=== PATIENT | female | born 1975 | race Caucasian/White ===

== ENCOUNTER 2019-06-16 05:56 | Inpatient (IN) ==
--- NOTE | 2019-06-08 20:47 | PAT Medication Instructions ---
Medication Instructions Date of Service June 08, 2019 Home Medications clonazepam [Klonopin] 1 mg PO HS ferrous sulfate [iron] 325 mg PO QAM venlafaxine [Effexor XR] 75 mg PO QAM venlafaxine [Effexor XR] 150 mg PO QAM acetaminophen [Tylenol Extra Strength] 1,000 mg PO Q6H PRN cyclobenzaprine 10 mg PO TID PRN ergocalciferol (vitamin D2) 50,000 unit PO WK gabapentin 300 mg PO TID levothyroxine [Synthroid] 50 mcg PO QAM levothyroxine [Synthroid] 112 mcg PO QAM lorazepam [Ativan] 1 mg PO HS rizatriptan [Maxalt-SEMI CONDUCTOR ASSEMBLER] 5 mg PO DAILY PRN zolpidem 12.5 mg PO HS Continue as directed ergocalciferol (vitamin D2) 50,000 unit PO WK DO NOT take the morning of surgery ferrous sulfate [iron] 325 mg PO QAM cyclobenzaprine 10 mg PO TID PRN Take morning of surgery With a small sip of water, OTHERWISE NOTHING TO EAT OR DRINK AFTER MIDNIGHT: venlafaxine [Effexor XR] 75 mg PO QAM venlafaxine [Effexor XR] 150 mg PO QAM acetaminophen [Tylenol Extra Strength] 1,000 mg PO Q6H PRN (if needed, may be taken up to four hours before surgery) gabapentin 300 mg PO TID levothyroxine [Synthroid] 50 mcg PO QAM levothyroxine [Synthroid] 112 mcg PO QAM rizatriptan [Maxalt-SEMI CONDUCTOR ASSEMBLER] 5 mg PO DAILY PRN (if needed) Take evening before surgery clonazepam [Klonopin] 1 mg PO HS acetaminophen [Tylenol Extra Strength] 1,000 mg PO Q6H PRN (if needed) cyclobenzaprine 10 mg PO TID PRN (if needed) gabapentin 300 mg PO TID lorazepam [Ativan] 1 mg PO HS rizatriptan [Maxalt-SEMI CONDUCTOR ASSEMBLER] 5 mg PO DAILY PRN (if needed) zolpidem 12.5 mg PO HS Other Notes If you have any questions please call us at [phone] or [phone] or [phone] or [phone]
--- NOTE | 2019-06-09 13:15 | Anesthesiology Consultation ---
Date of Service June 09, 2019 Assessment & Plan (1) Encounter for pre-operative examination: S/P lumbar decomp/fusion 08/07/18 = MAC 3, ETT 7.0, grade view I. No issues noted in record. *With previous fusion, pt had significant skin irritation post-op from tape on face used to secure ETT* CHECK TEST AM DOS Chart Review Chart Review: Acceptable Risk for Surgery and Patient seen in Pre Admission Testing Teaching & Discussion Instructed NPO after midnight before surgery, except medications with 15 cc of water. Medication instructions provided according to the PAT guidelines. History Surgery Operation Date: 06/16/19 07:45 Proposed Procedures p L3-L4 Decompression and Fusion;L4-L5, L5-S1 Removal Hardware with Spinal Cord Monitoring - Albert Amaya, Height/Weight Height: 5 ft 6 in Weight: 114.5 kg Allergies Allergy/AdvReac Type Severity Reaction Status Date / Time Iodinated Contrast- Oral and Allergy Mild itching Verified 08/07/18 08:02 IV Dye ampicillin Allergy Hives Verified 08/07/18 08:02 latex Allergy Redness of Verified 08/07/18 08:02 Skin Medications Home Medications Medication Instructions Recorded Confirmed Last Taken clonazepam [Klonopin] 1 mg PO HS 07/12/18 06/02/19 08/05/18 21:30 ferrous sulfate [iron] 325 mg PO QAM 07/12/18 06/02/19 08/06/18 10:30 venlafaxine [Effexor XR] 75 mg PO QAM 07/12/18 06/02/19 08/07/18 05:00 venlafaxine [Effexor XR] 150 mg PO QAM 07/12/18 06/02/19 08/07/18 05:00 acetaminophen [Tylenol Extra 1,000 mg PO Q6H PRN 08/07/18 06/02/19 08/07/18 05:00 Strength] cyclobenzaprine 10 mg PO TID PRN 06/02/19 06/02/19 Unknown ergocalciferol (vitamin D2) 50,000 unit PO WK 06/02/19 06/02/19 Unknown [Vitamin D2] gabapentin 300 mg PO TID 06/02/19 06/02/19 Unknown levothyroxine [Synthroid] 50 mcg PO QAM 06/02/19 06/02/19 Unknown levothyroxine [Synthroid] 112 mcg PO QAM 06/02/19 06/02/19 Unknown lorazepam [Ativan] 1 mg PO HS 06/02/19 06/02/19 Unknown rizatriptan [Maxalt-ORDER EDITOR] 5 mg PO DAILY PRN 06/02/19 06/02/19 Unknown zolpidem 12.5 mg PO HS 06/02/19 06/02/19 Unknown Past Medical History Medical History Anemia Anxiety Arthritis Chronic back pain B/L LE RADICULOPATHY/NEUROPATHY Depression History of intestinal obstruction POST GASTRIC BYPASS History of seizure 2014 - MULTIPLE TRAUMATIC ISSUES LED TO ONE EPISODE Hx of Lyme disease Hypothyroidism Insomnia Migraine Morbid obesity Spinal stenosis Exercise / Class Metabolic Activity II 4-5 Yardwork/Stairs/Walk up hill (Denies CP or SOB with 1 FOS) Past Surgical History Surgical History History of back surgery History of bowel resection 2/2 obstruction after gastric bypass History of carpal tunnel release of both wrists History of section History of cholecystectomy History of colonoscopy History of dilatation and curettage History of gastric bypass History of herniorrhaphy x5; VENTRAL/INGUINAL History of tonsillectomy and adenoidectomy History of tooth extraction Past Anesthesia History No Hx of Anesthesia Complications and No Family Hx of Anesthesia Complications S/P lumbar decomp/fusion 08/07/18 = MAC 3, ETT 7.0, grade view I. No issues noted in record. History of PONV History of PONV (single episode after lap brian) and Hx of Motion Sickness Social History Smoking Status: Current every day smoker tobacco type: cigarettes Smoking cigarettes per day: 15-20 Do You Dip or Chew Tobacco: No Hx Alcohol Use: No Hx Substance Use: No Review of Systems Pt denies any recent chest pain, shortness of breath, palpitations, cough, fever or URI. Physical Exam Vital Signs BP: 112/75 P: 72bpm SPO2: 96% RA T: 98.1 F R: 18 Constitutional + obese ENMT Mouth: + dental restorations (many crowns); no chipped teeth and no loose teeth Thyromental Distance: > or= 3.5 Finger Breadths (4) Mallampati Class: II Neck normal visual inspection; neck extension not limited Respiratory normal respiratory effort Auscultation: lungs clear to auscultation bilaterally Cardiovascular Rate/Rhythm: regular rate and regular rhythm Heart Sounds: no murmur Extremities: no edema Testing Laboratory Results 06/09/19 13:20 06/09/19 13:20 PT 10.3 Seconds (9.0-12.0) 06/09/19 13:20 INR 1.0 (0.9-1.1) 06/09/19 13:20 APTT 27.3 Seconds (21.0-31.0) 06/09/19 13:20 Urine Color Yellow 06/09/19 Unknown Urine Appearance Clear (Clear) 06/09/19 Unknown Urine pH 5.5 (4.5-7.5) 06/09/19 Unknown Ur Specific [place] 1.012 (1.000-1.030) 06/09/19 Unknown Urine Protein Negative (Negative) 06/09/19 Unknown Urine Glucose (UA) Trace (Negative) H 06/09/19 Unknown Urine Ketones Negative (Negative) 06/09/19 Unknown Urine Nitrite Positive (Negative) A 06/09/19 Unknown Ur Leukocyte Esterase Negative (Negative) 06/09/19 Unknown Urine RBC 0-4 /hpf (0-4) 06/09/19 Unknown Urine WBC 0-5 /hpf (0-5) 06/09/19 Unknown Ur Epithelial Cells 10-20 /lpf (0-5) H 06/09/19 Unknown Blood Type A Positive 06/09/19 13:20 Antibody Screen NEGATIVE 06/09/19 13:20 Electrocardiogram Date: 07/16/18 Findings: + NSR @ (65bpm) Left posterior fascicular block. Chest X-Ray Date: 07/16/18 Findings: + NAD
[2019-06-09 14:17] LABS: Basophils # (auto) 0.04 K/uL (0-0.2); Basophils % (auto) 0.4 %; Eosinophils # (auto) 0.01 K/uL (0-0.5); Eosinophils % (auto) 0.1 %; Hematocrit (blood only) 41.7 % (37-47); Hemoglobin 14.2 g/dL (12.0-16.0); Immature Granulocytes # (auto) 0.03 K/uL (0.00-0.02); Immature Granulocytes % (auto) 0.3 %; Lymphocytes # (auto) 2.75 K/uL (1.2-3.4); Mean Corpuscular Hgb Conc 34.1 g/dL (32-36); Mean Platelet Volume 10.1 fL (7.4-10.4); Monocytes # (auto) 0.73 K/uL (0.11-0.59); Neutrophils % (auto) 61.2 %; Platelet Count 280 K/uL (130-400); RDW Coefficient of Variation 13.9 % (11.5-14.5); RDW Standard Deviation 46.2 fL (36.4-46.3); Red Blood Count 4.58 M/uL (4.2-5.4); White Blood Count 9.16 K/uL (4.8-10.8)
[2019-06-09 14:18] LABS: Appearance Urine Clear (Clear); Bilirubin Urine Negative (Negative); Blood Urine Negative (Negative); Color Urine Yellow; Glucose Urine UA Trace (Negative); Ketones Urine Negative (Negative); Leukocyte Esterase Urine Negative (Negative); Nitrite Urine Positive (Negative); Protein Urine Negative (Negative); Specific Gravity Urine 1.012 (1.000-1.030); Urobilinogen Urine Negative (Negative); pH Urine 5.5 (4.5-7.5)
[2019-06-09 14:23] LABS: BUN Creatinine Ratio 11.8 (10-20); Calcium 8.9 mg/dl (8.5-10.1); Creatinine Clr Calc Pharmacy 106.1 ml/min; Est GFR (African American) 94.6; Est GFR (Non-African American) 81.6; Potassium 3.9 mmol/L (3.5-5.1)
[2019-06-09 14:29] LABS: Partial Thromboplastin Time 27.3 Seconds (21.0-31.0); Prothrombin Time 10.3 Seconds (9.0-12.0)
[2019-06-09 14:35] LABS: Bacteria Urine 3+ (Negative); RBC Urine 0-4 /hpf (0-4); WBC Urine 0-5 /hpf (0-5)
[2019-06-09 14:36] LABS: Hyaline Casts Urine 0-5 /lpf (0-5)
[2019-06-16] MEDS ORDERED: LR 15ML/HR IV SCH (06:00)
[2019-06-16] MEDS ORDERED: CEFAZOLIN 3000MG 72.5 ML IV SCH (06:00)
[2019-06-16] MEDS ORDERED: ACETAMINOPHEN 500 MG TAB PO SCH (06:00)
[2019-06-16] MEDS ORDERED: CeleBREX 200 MG CAP PO SCH (06:00)
[2019-06-16] MEDS ORDERED: CLINDAMYCIN 600 MG/54 ML BAG IV SCH (06:00)
[2019-06-16] MEDS ORDERED: GABAPENTIN 900 MG DOSE PO SCH (06:00)
[2019-06-16] MEDS ORDERED: ONDANSETRON INJ 2 MG/ML 2 ML VIAL IV PRN ×2 (06:56→11:27)
[2019-06-16] MEDS ORDERED: LABETALOL HCL IV 5 MG/ML 20ML IV PRN (06:56)
[2019-06-16] MEDS ORDERED: ATROPINE SULFATE 0.1 MG/ML 10ML SYR IV PRN (06:56)
[2019-06-16] MEDS ORDERED: BUPIVACAINE/EPINEPHRINE 0.5% MPF 1:200,000 30 ML VIAL ONE (07:00)
[2019-06-16] MEDS ORDERED: BACITRACIN INJ 50,000 UNIT VIAL ONE (07:00)
[2019-06-16] MEDS ORDERED: ONDANSETRON INJ 2 MG/ML 2 ML VIAL ONE ×2 (07:04→16:41)
[2019-06-16] MEDS ORDERED: LIDOCAINE HCL 2% 2 ML VIAL/AMP(20MG/ML) INFIL ONE (07:04)
[2019-06-16] MEDS ORDERED: DEXAMETHASONE SOD INJ 4 MG/ML VIAL ONE ×2 (07:04→07:10)
[2019-06-16] MEDS ORDERED: SODIUM CHLORIDE 0.9% INJ 10 ML VIAL ONE (07:05)
[2019-06-16] MEDS ORDERED: PROPOFOL IV EMULSION 10 MG/ML 20 ML VIAL IV ONE (07:05)
[2019-06-16] MEDS ORDERED: NEOSTIGMINE METHYLSULFATE 1 MG/ML 10ML VIAL ONE (07:05)
[2019-06-16] MEDS ORDERED: MIDAZOLAM HCL 1 MG/ML 2ML VIAL ONE (07:05)
[2019-06-16] MEDS ORDERED: LARYING-O-JET KIT (LTA) ONE (07:05)
[2019-06-16] MEDS ORDERED: GLYCOPYRROLATE 0.2 MG/ML VIAL ONE (07:05)
[2019-06-16] MEDS ORDERED: fentaNYL citrate 100 MCG/2 ML VIAL ONE (07:05)
[2019-06-16] MEDS ORDERED: HYDROmorphone INJ 2 MG/ML SYR/VIAL ONE (07:05)
--- NOTE | 2019-06-16 07:31 | History & Physical Bridge Note ---
Date of Service June 16, 2019 History & Physical Bridge Note I have examined the patient, reviewed the History & Physical and in the interval since the performance of the History & Physical I have noted the following changes of clinical significance: no changes noted
--- NOTE | 2019-06-16 07:32 | History & Physical Report ---
Date of Service June 16, 2019 Assessment & Plan (1) Spinal stenosis, lumbar region with neurogenic claudication: Decompression and fusion L3-4 removal hardware L4-5 L5-S1 Present on Admission?: Yes History of Present Illness Chief Complaint: Back and leg pain Primary Care Provider: Liu Patricia MD This is a 43-year-old female well-known to me that presents with worsening back and leg pain after failing extensive course of nonoperative care is here for surgical intervention. Allergies Allergy/AdvReac Type Severity Reaction Status Date / Time ampicillin Allergy Intermediate Hives Verified 06/16/19 06:33 Iodinated Contrast- Oral and Allergy Mild itching Verified 06/16/19 06:33 IV Dye latex Allergy Mild Redness of Verified 06/16/19 06:33 Skin Home Medications Home Medications Medication Instructions Recorded Confirmed Type clonazepam [Klonopin] 1 mg PO HS 07/12/18 06/16/19 History ferrous sulfate [iron] 325 mg PO QAM 07/12/18 06/16/19 History venlafaxine [Effexor XR] 75 mg PO QAM 07/12/18 06/16/19 History venlafaxine [Effexor XR] 150 mg PO QAM 07/12/18 06/16/19 History acetaminophen [Tylenol Extra 1,000 mg PO Q6H PRN 08/07/18 06/16/19 History Strength] cyclobenzaprine 10 mg PO TID PRN 06/02/19 06/16/19 History ergocalciferol (vitamin D2) 50,000 unit PO WK 06/02/19 06/16/19 History [Vitamin D2] gabapentin 300 mg PO TID 06/02/19 06/16/19 History levothyroxine [Synthroid] 50 mcg PO QAM 06/02/19 06/16/19 History levothyroxine [Synthroid] 112 mcg PO QAM 06/02/19 06/16/19 History lorazepam [Ativan] 1 mg PO HS 06/02/19 06/16/19 History rizatriptan [Maxalt-CASKET COVERER] 5 mg PO DAILY PRN 06/02/19 06/16/19 History zolpidem 12.5 mg PO HS 06/02/19 06/16/19 History Past Med/Surg History Social History Preferred Language: Faroese Communication Ability: Effective Sterile Processing Technologist Required: No Beliefs That Will Affect Care: None Current Living Situation: Family Feels Safe at Home: Yes Smoking Status: Current every day smoker Tobacco Type: cigarettes ; Cigarettes Per Day: 15-20 ; Do You Dip or Chew Tobacco: No ; Second Hand Exposure: No ; Hx Alcohol Use: No Hx Substance Use: No Physical Exam Physical Exam: Patient is alert and oriented neurologically intact. Results & Data Vital Signs (Past 12 Hours) Vital Signs Temp Pulse Resp BP Pulse Ox 06/16/19 06:38 36.9 C 68 20 94/72 L 97
[2019-06-16] MEDS ORDERED: CLINDAMYCIN 600 MG/54 ML D5W IV ONE (07:41)
[2019-06-16] MEDS ORDERED: ePHEDrine sulfate 50 MG/ML SYR ONE (08:33)
[2019-06-16] MEDS ORDERED: ROCURONIUM BROMIDE 10 MG/ML 5 ML VIAL ONE ×2 (08:33→09:22)
[2019-06-16] MEDS ORDERED: PHENYLEPHRINE 100MCG/ML 5ML SYR ONE (08:39)
[2019-06-16] MEDS ORDERED: ALBUMIN HUMAN 5% 12.5 GM/250 ML VIAL IV ONE (09:29)
--- NOTE | 2019-06-16 09:59 | Operative Report ---
Post Operative Report Pre & Post Diagnosis Operation Date: 06/16/19 07:45 Pre-Op Diagnosis: Spinal Stenosis, lumbar region with neurogenic claudication L3-4; Previous fusion L4-S1 Post-Op Diagnosis: Spinal Stenosis, lumbar region with neurogenic claudication L3-4; Previous fusion L4-S1 Procedure Operation Date: 06/16/19 07:45 Actual Procedures #1 removal of posterior instrumentation L4-5 L5-S1 per #2 expiration of fusion L4-5 L5-S1. #3 lumbar decompression with bilateral medial facetectomies L2-3 L3-4. #4 posterior spinal fusion L3-4. #5 placement posterior instrumentation L3-S1. #6 interbody fusion L3-4. #7 placement of titanium 11 x 22 mm cage at L3-4. #8 basement of local autograft in the posterior lateral gutters. #9 patient infuse collagen sponge, master graft in the posterior lateral gutters and ostial amp and interbody space. Surgeon Albert Amaya, DO Cathead Worker Mayte Marquez Estimated Blood Loss 650 Findings See Below Patient is 5 foot 6 inches tall weighing over 114 kg with a BMI in excess of 40. The patient's significant body habitus combined with marked blood loss created significant technical difficulty throughout the procedure requiring her deepest retractors and longest instruments to perform. This created at least 50% increase in operative time. Specimens None Indications This is a 43-year-old female well-known to me that presents with severe leg pain after failing extensive course of nonoperative care like to undergo the above- mentioned procedure. Description of Procedure Patient was met with identified and informed consent obtained. Patient was then taken to the operative suite underwent intubation placed in the prone position the Micky table on top of the Kevin frame. All bony prominences well-padded inspected to ensure no external pressure placed upon the peer at this point the lumbar spine was prepped and draped in a normal sterile fashion. Sharp dissection with the assistance of Bovie cautery was performed down to and exposing the lamina and transverse processes of L3 and instrumentation at L4-L5 and S1 levels bilaterally. I then proceed remove the hardware at L3-L4-L5 bilaterally. Noticed some loosening at the L3 screws. Bone graft appeared to be maturing appropriately. I then performed a complete laminectomy of L3 partial laminectomy of L2 including bilateral medial facetectomies foraminotomies addressing severe stenosis. Pedicle screws were then placed in L3-L4-L5 and S1 levels bilaterally with assistance of fluoroscopy the process naga placed. By way of a transforaminal approach on the right complete discectomy was performed endplates curetted to subcortical bleeding bone and a 11 x 22 mm titanium cage filled with ostium bone graft tapped in position. The rods were then compressed locked into final position bilaterally. The transverse processes of L3 and L4 burred to subcortical being bone. Infuse collagen sponge mass graft and local autograft placed in the posterior lateral gutters. 15 round CHANDNI drain inserted. Incision was then closed with 1 Vicryl in the fascia 2-0 Vicryl substantially and 4 Monocryl for final skin closure. Steri-Strips dressings placed. Patient will continue to PACU stable condition. Please note Mayte Marquez present throughout the entire procedure involved in patient positioning complex portions of the surgery and final skin closure. Lastly spinal cord monitoring was utilized that the procedure no changes noted. I attest to the content of the Intraoperative Record and any orders documented therein. Any exceptions are noted below.
[2019-06-16] MEDS: HYDROmorphone INJ 1 MG/ML SYRINGE IV PRN ×6 (10:20→10:45)
--- NOTE | 2019-06-16 10:23 | Fluoroscopy Report ---
FL lumbar spine 2-3V HISTORY: 43 years-old Female L3-L4 DECOMPRESSION AND FUSION/ L4-S1 HARDWARE REMOVAL postoperative ch anges of the lumbar spine. Chronic low back pain COMPARISON: Fluoroscopic images of the lumbar spine 08/07/2018 TECHNIQUE: 3 spot fluoroscopic images of the lumbar spine were obtained utilizing 8.9 seconds fluoros copy time FINDINGS: Laminectomy changes with posterior interbody naga and screw fusion extends from L3-S1. Discectomy riddle ges at L3-L4 and L5-S1. Alignment appears satisfactory without acute fracture identified. Multilevel spondylitic spurring. Intervertebral disc space narrowing at L3-L4. IMPRESSION: Fluoroscopic assistance as above. Please see operative report for further details. The above report was generated using voice recognition software. It may contain grammatical, syntax o r spelling errors. Electronically signed by: Cody Paec M.D. 06/16/2019 10:22 AM
[2019-06-16] MEDS: FLOSEAL HEMOSTATIC MATRIX 10ML TOP ONE ×2 (11:26→12:01)
[2019-06-16] MEDS ORDERED: CYCLOBENZAPRINE HCL 10 MG TAB PO PRN (11:27)
[2019-06-16] MEDS ORDERED: BISACODYL 10 MG SUPP PR PRN (11:27)
[2019-06-16] MEDS ORDERED: LORazepam 0.5 MG/1 ML VIAL IV PRN (11:27)
[2019-06-16] MEDS ORDERED: RIZATRIPTAN BENZOATE 10 MG TAB PO PRN (11:27)
[2019-06-16] MEDS ORDERED: DO NOT ADMINISTER FLU VACCINE PRN (11:27)
[2019-06-16] MEDS ORDERED: PROMETHAZINE HCL 12.5 MG in SODIUM CHLORIDE 0.9% 50 ML IV PRN (11:27)
[2019-06-16] MEDS ORDERED: MAGNESIUM HYDROXIDE SUSP 30 ML UDC PO PRN (11:27)
[2019-06-16] MEDS ORDERED: ONDANSETRON 4 MG TAB PO PRN (11:27)
[2019-06-16] MEDS ORDERED: DO NOT ADMINISTER PNEUMOCOCCAL VACCINE PRN (11:27)
[2019-06-16] MEDS ORDERED: ACETAMINOPHEN 1,000 MG/100 ML VIAL IV PRN (11:27)
[2019-06-16] MEDS ORDERED: METOCLOPRAMIDE HCL INJ 5 MG/ML 2 ML VIAL IV PRN (11:27)
[2019-06-16] MEDS ORDERED: LORazepam 0.5 MG TAB PO PRN (11:27)
[2019-06-16] MEDS ORDERED: FAMOTIDINE 20 MG TAB PO PRN (11:27)
[2019-06-16] MEDS ORDERED: HYDROmorphone INJ 0.5 MG/0.5 ML SYR IV PRN (11:27)
[2019-06-16] MEDS ORDERED: NALOXONE HCL 0.4 MG/1 ML VIAL/CARP IV PRN (11:27)
[2019-06-16] MEDS ORDERED: ALUMINUM/MAGNESIUM SUSP 30 ML UDC PO PRN (11:27)
[2019-06-16] MEDS ORDERED: SOD PHOSPHATE/SOD BIPHOSPHATE ENEMA 132 ML BTL PR PRN (11:27)
[2019-06-16] MEDS ORDERED: ACETAMINOPHEN 500 MG TAB PO PRN (11:27)
--- NOTE | 2019-06-16 12:07 | Anesthesiology Progress Note ---
Date of Service June 16, 2019 Anesthesia Post Procedure Vital Signs Vital Signs: Temp Pulse Pulse Resp BP Pulse Ox 06/16/19 11:10 37.2 C 87 12 102/69 98 06/16/19 11:00 36.6 C 84 15 115/64 97 06/16/19 10:50 85 19 109/64 98 06/16/19 10:40 88 20 127/64 99 06/16/19 10:30 86 15 109/68 100 06/16/19 10:20 93 H 12 142/77 H 100 06/16/19 10:14 37 C 108 H 12 102/81 100 06/16/19 06:38 36.9 C 68 20 94/72 L 97 Pain Intensity Lower Back: Pain Intensity: 9 Transfer of Care Handoff Completed per policy Notes Mental Status: alert / awake / arousable Patient Amnestic to Procedure: Yes Nausea / Vomiting: adequately controlled Pain: adequately controlled Airway Patency, RR, SpO2: stable & adequate BP & HR: stable & adequate Hydration State: stable & adequate Anesthetic Complications: no major complications apparent
[2019-06-16] MEDS: KETOROLAC 30 MG/ML VIAL IV SCH ×3 (12:29→23:10)
[2019-06-16] MEDS: LACTATED RINGER'S 1,000 ML IV SCH ×2 (12:30→19:59)
[2019-06-16] MEDS: GABAPENTIN 300 MG CAP PO SCH ×2 (13:33→20:16)
[2019-06-16] MEDS: OXYCODONE HCL IR 5 MG TAB (IMMEDIATE RELEASE) PO PRN ×2 (13:33→23:14)
[2019-06-16] MEDS: CLINDAMYCIN 600 MG in DEXTROSE 5% 50 ML IV SCH ×2 (16:42→23:10)
[2019-06-16] MEDS: NICOTINE 14 MG/24 HR PATCH TD SCH (20:02)
[2019-06-16] MEDS ORDERED: ZOLPIDEM TARTRATE 10 MG TAB PO SCH (21:00)
[2019-06-16] MEDS ORDERED: LORazepam 1 MG TAB PO SCH (21:00)
[2019-06-16] MEDS ORDERED: DOCUSATE SODIUM/SENNA 50/8.6MG TAB PO SCH (21:00)
[2019-06-16] MEDS ORDERED: clonazePAM 0.5 MG TAB PO SCH (21:00)
[2019-06-17] MEDS: LACTATED RINGER'S 1,000 ML IV SCH (02:15)
[2019-06-17] MEDS: OXYCODONE HCL IR 5 MG TAB (IMMEDIATE RELEASE) PO PRN ×3 (03:54→14:13)
[2019-06-17] MEDS: POLYETHYLENE (MIRALAX) 17 GM PACK PO SCH ×2 (05:26→12:44)
[2019-06-17] MEDS: KETOROLAC 30 MG/ML VIAL IV SCH (05:26)
[2019-06-17] MEDS ORDERED: LEVOTHYROXINE SODIUM 50 MCG TABLET PO SCH (06:30)
[2019-06-17] MEDS ORDERED: LEVOTHYROXINE SODIUM 112 MCG TABLET PO SCH (06:30)
[2019-06-17 06:54] LABS: Basophils # (auto) 0.03 K/uL (0-0.2); Basophils % (auto) 0.3 %; Eosinophils # (auto) 0.05 K/uL (0-0.5); Eosinophils % (auto) 0.5 %; Hematocrit (blood only) 30.7 % (37-47); Hemoglobin 10.2 g/dL (12.0-16.0); Immature Granulocytes # (auto) 0.03 K/uL (0.00-0.02); Immature Granulocytes % (auto) 0.3 %; Lymphocytes # (auto) 1.98 K/uL (1.2-3.4); Lymphocytes % (auto) 19.5 %; Mean Corpuscular Hgb Conc 33.2 g/dL (32-36); Mean Corpuscular Volume 91.6 fL (80-100); Mean Platelet Volume 9.7 fL (7.4-10.4); Monocytes # (auto) 0.71 K/uL (0.11-0.59); Neutrophils # (auto) 7.34 K/uL (1.4-6.5); Neutrophils % (auto) 72.4 %; Platelet Count 198 K/uL (130-400); RDW Coefficient of Variation 14.2 % (11.5-14.5); RDW Standard Deviation 47.7 fL (36.4-46.3); Red Blood Count 3.35 M/uL (4.2-5.4); White Blood Count 10.14 K/uL (4.8-10.8)
[2019-06-17 07:31] LABS: BUN Creatinine Ratio 17.3 (10-20); Calcium 8.2 mg/dl (8.5-10.1); Creatinine Clr Calc Pharmacy 99.2 ml/min; Est GFR (African American) 87.2; Est GFR (Non-African American) 75.2; Potassium 3.9 mmol/L (3.5-5.1)
--- NOTE | 2019-06-17 08:14 | Anesthesiology Progress Note ---
Date of Service June 17, 2019 Anesthesia Post Procedure Vital Signs Vital Signs: Temp Pulse Pulse Pulse Resp BP BP 06/17/19 07:12 37.0 C 72 18 113/76 06/17/19 05:35 101/64 06/17/19 03:08 36.8 C 73 16 97/61 L 06/16/19 23:53 100/62 100/64 06/16/19 22:59 36.8 C 71 16 89/55 L 06/16/19 19:29 36.8 C 78 17 144/79 H 06/16/19 15:00 36.8 C 80 17 101/64 06/16/19 14:08 72 18 101/64 06/16/19 13:26 84 18 106/65 06/16/19 12:10 92 H 16 101/67 06/16/19 11:40 88 18 112/75 06/16/19 11:10 37.2 C 87 12 102/69 06/16/19 11:00 36.6 C 84 15 115/64 06/16/19 10:50 85 19 109/64 06/16/19 10:40 88 20 127/64 06/16/19 10:30 86 15 109/68 06/16/19 10:20 93 H 12 142/77 H 06/16/19 10:14 37 C 108 H 12 102/81 Pulse Ox 06/17/19 07:12 95 06/17/19 05:35 06/17/19 03:08 95 06/16/19 23:53 06/16/19 22:59 96 06/16/19 19:29 96 06/16/19 15:00 94 06/16/19 14:08 94 06/16/19 13:26 94 06/16/19 12:10 96 06/16/19 11:40 98 06/16/19 11:10 98 06/16/19 11:00 97 06/16/19 10:50 98 06/16/19 10:40 99 06/16/19 10:30 100 06/16/19 10:20 100 06/16/19 10:14 100 Pain Intensity Lower Back: Pain Intensity: 6 Notes Mental Status: alert / awake / arousable and participated in evaluation Patient Amnestic to Procedure: Yes Nausea / Vomiting: adequately controlled Pain: adequately controlled Airway Patency, RR, SpO2: stable & adequate BP & HR: stable & adequate Hydration State: stable & adequate Anesthetic Complications: no major complications apparent and Pt Satisfied with anesthetic care
[2019-06-17] MEDS: GABAPENTIN 300 MG CAP PO SCH ×2 (08:47→12:44)
[2019-06-17] MEDS: NICOTINE 14 MG/24 HR PATCH TD SCH (08:47)
[2019-06-17] MEDS ORDERED: FERROUS SULFATE 325 MG TAB PO SCH (09:00)
[2019-06-17] MEDS ORDERED: VENLAFAXINE HCL XR 75 MG CAPXR PO SCH (09:00)
[2019-06-17] MEDS ORDERED: VENLAFAXINE HCL XR 150 MG CAPXR PO SCH (09:00)
--- NOTE | 2019-06-17 17:28 | Discharge Summary ---
Date of Service June 17, 2019 Admission HPI Per Admitting Provider This is a 43-year-old female well-known to me that presents with worsening back and leg pain after failing extensive course of nonoperative care is here for surgical intervention. Principal Diagnosis Lumbar spinal stenosis with neurogenic claudication. Discharge Data Allergies Allergy/AdvReac Type Severity Reaction Status Date / Time ampicillin Allergy Intermediate Hives Verified 06/16/19 06:33 Iodinated Contrast- Oral and Allergy Mild itching Verified 06/16/19 06:33 IV Dye latex Allergy Mild Redness of Verified 06/16/19 06:33 Skin Consultations 06/16/19 11:27 Consult Case Management - Discharge Planning Routine Procedures Performed Operation Date: 06/16/19 07:45 Actual Procedures p L3-L4 decompression and fusion L4-L5, with spinal cord monitoring, with bone morphogenetic protein and Osteoamp allograft, interbody cage L3-4(Not Applicable) - Albert Amaya DO s L5-S1 removal of hardware(Not Applicable) - Albert Amaya DO Ordered Studies 06/16/19 07:45 FL fluoroscopy <1hr Routine FL lumbar spine 2-3V Routine Hospital Course (1) Spinal stenosis, lumbar region with neurogenic claudication: Patient underwent lumbar depression fusion tolerated as well as taken orthopedic for postoperative postop day #1 marked improvement of her leg symptoms she is ambling well. Subsequently she would like to be discharged home. We arranged home health to monitor drain discharge instructions can be found the chart for further review. Total Time Total Time Spent Total Time Spent (In Minutes): 20 minutes Discharge Plan Discharge Items Patient Disposition: Home - Home Health Services Reason For Visit: LUMBAR INTERVERTEBRAL DISC DISORDERS W/RADICULOPAT Discharge Diagnosis: Lumbar spinal stenosis with radiculopathy Discharge Goals: Decrease discomfort Activity: Per 'Additional Instructions' section Non-emergency contact: Primary Care Provider Call non-emergency contact if: you have any medication questions Follow-up/Referrals: Liu Patricia MD [Primary Care Provider] - Diet: Regular Addtl Provider Instructions: ACTIVITY RECOMMENDATIONS: SELF CARE INSTRUCTIONS AFTER THORACIC/LUMBAR FUSIONS 1. You may walk to your tolerance. It is good exercise for your legs and back. Expect some back and intermittent leg aches and pains. 2. You may perform "counter-top" level activities (make a sandwich, mary with a project, etc.). 3. No bending or lifting of more than 10 pounds or back twisting of any nature (roll like a log when turning in bed). 4. You may ride in a car for 20-30 minutes at a time. No driving until after your first visit with your doctor. 5. Frequent changes of position and restricting sitting to 30 minutes at a time will help limit the amount of back spasms and stiffness you may experience. 6. You may discontinue the use of ambulatory aids (cane, crutches, etc.) once your strength and confidence allow. 7. You may vending machine mechanic the shower and let water strike your incision when you arrive home at least once daily. Do not take a tub bath, sit in a hot tub or go into a swimming pool until after your first recheck in the office. SPECIAL CARE INSTRUCTIONS: VERY IMPORTANT TO READ AND REVIEW A. Your surgical incision has been closed with a cosmetic suture under the skin that will dissolve in about 6 weeks. In 14 days, you can use a pair of clean scissors and cut the suture that is left outside of the skin at the ends of your incision. 1. The small skin tapes can be removed 7 days after surgery if they have not fallen off by that point. 2. You may keep the wound open to air as much as possible to promote healing after post-op day number 5 unless told otherwise by your doctor. 3. If you think the wound looks like it is becoming infected (redness or worsening drainage) and/or you are experiencing fever, chill or worsening back pain and muscle spasms, contact the office so that we may evaluate you as soon as possible. B. Complications are uncommon, but please contact us if you have any signs or symptoms of: 1. wound infection (fever higher than 102.5 degrees F, redness, separation of wound, drainage, or increasing pain from the incision) 2. blood clots in legs (pain, swelling, redness and warmth in legs) 3. urinary tract infection (fever higher than 102.5 degrees F, burning upon urination or increased frequency of urination) 4. nerve problems (inability to walk on your toes or heels, numbness, loss of bowel or bladder control) 5. any other symptoms that concern you C. Please call the office at if you have any concerns or questions about your operation or recovery. D. No smoking! Smoking drastically decreases the chance of a solid fusion. E. Do not take any anti-inflammatory medications (Indocin, Advil, Motrin, Aspirin, Naprosyn, etc.) as these may inhibit the chance of a solid fusion. Tylenol is okay to take for pain. MANAGING PAIN AFTER SPINAL SURGERY 1. Narcotic medication is intended for short-term use and will be provided for surgical pain. Surgical pain usually lasts for a period of 4-6 weeks. Narcotic medication includes Percocet, Vicodin, Darvocet, Tylenol #3 or Lortab. 2. Longer-term pain is more appropriately treated with non-narcotic medication such as Tylenol ES. 3. Muscle spasm is not appropriately treated with narcotics. Muscle relaxers such as Soma, Flexeril or Skelaxin can be used along with Tylenol ES. 4. Remember that we all live with some "aches and pains". This is not unusual or uncommon after an injury or as we get older. a. Back pain is expected and may include muscle spasms for 4 to 6 weeks after surgery. The pain should gradually improve. If the pain worsens for no apparent reason, please contact the office. b. Intermittent leg pain may also be experienced and should not be concerned about unless it worsens for no apparent reason. If so, please contact the office. 5. We will provide appropriate medication within the normal guidelines of their prescribed use. We will also be very cautious and aware of potential abuse and extended duration of patients' medication needs. a. Pain medications are for your comfort and to assist with sleep and rest so that the tissue can heal. They are not provided in order to return to normal activity and should not be used through the day. To do so or worsening pain at night can result from ongoing tissue damage and development of tolerance to the prescribed medicine. 6. Please allow 2-3 days to process refills. Prescriptions will not be mailed but must be picked up at the office. FOLLOW UP VISIT: Keep your scheduled follow-up appointment. Any questions, please call the office at . Prescriptions: New oxycodone 5 mg Tablet 5 mg PO Q4H PRN (Reason: Pain) Qty: 30 RF: 0 lorazepam 0.5 mg Tablet 0.5 mg PO Q8H Qty: 20 RF: 0 Continued cyclobenzaprine 10 mg Tablet 10 mg PO TID PRN (Reason: BACK SPASMS) RF: 0 levothyroxine [Synthroid] 50 mcg Tablet 50 mcg PO QAM RF: 0 gabapentin 300 mg Capsule 300 mg PO TID RF: 0 rizatriptan [Maxalt-MAT LINKER] 5 mg Tablet,Disintegrating 5 mg PO DAILY PRN (Reason: MIGRAINES) RF: 0 levothyroxine [Synthroid] 112 mcg Tablet 112 mcg PO QAM RF: 0 zolpidem 12.5 mg Tablet,Ext Release Multiphase 12.5 mg PO HS RF: 0 ergocalciferol (vitamin D2) [Vitamin D2] 50,000 unit Capsule 50,000 unit PO WK RF: 0 lorazepam [Ativan] 1 mg Tablet 1 mg PO HS RF: 0 venlafaxine [Effexor XR] 75 mg Capsule,Extended Release 24hr 75 mg PO QAM RF: 0 clonazepam [Klonopin] 0.5 mg Tablet 1 mg PO HS RF: 0 venlafaxine [Effexor XR] 150 mg Capsule,Extended Release 24hr 150 mg PO QAM RF: 0 ferrous sulfate [iron] 325 mg (65 mg iron) Tablet 325 mg PO QAM RF: 0 acetaminophen [Tylenol Extra Strength] 500 mg Tablet 1,000 mg PO Q6H PRN (Reason: Pain) RF: 0 Stand-Alone Forms: [employer], [facility]io[facility] Pain [facility] [employer]/Other Patient Handouts: Surgery Prevent DVT After, Tube Micky Hahn Drainage Care, ED Stockings Aaron Discharge Orders: Discharge Order (Routine); Ordered 06/17/19 Ordered By: Albert Amaya Admission Data Admit Date/Time: 06/16/19 10:02 Attending Provider: Albert Amaya Admit Provider: Albert Amaya Primary Care Provider: Liu Patricia Service: Surgical Services Other Interventions: Discharge Summary Assessment (RN) Last Done: 06/17/19 15:50 DC Date/Time DO NOT enter until pt leaves facility: 06/17/19 17:15
[2019-06-22] MEDS ORDERED: ERGOCALCIFEROL 50,000 UNITS CAP PO SCH (09:00)
== END 2019-06-17 17:15 | disposition home health service (06) | DRG 454 ==
LOC: ASU 05:56 → 3E 10:02
DX: Z68.41 Body mass index [BMI] 40.0-44.9, adult; Z98.1 Arthrodesis status; Z79.899 Other long term (current) drug therapy; E66.9 Obesity, unspecified; F17.210 Nicotine dependence, cigarettes, uncomplicated; M48.062 Spinal stenosis, lumbar region with neurogenic claudication

== ENCOUNTER 2019-07-31 10:57 | Inpatient (IN) ==
--- NOTE | 2019-07-25 12:30 | Anesthesiology Consultation ---
Date of Service July 25, 2019 Assessment & Plan (1) Encounter for pre-operative examination: Chart Review Chart Review: Acceptable Risk for Surgery and Patient NOT seen in Pre Admission Testing Consults Requested none History Surgery Operation Date: 07/31/19 12:50 Proposed Procedures p L3-L4 Revision Fusion, Spinal Cord Monitoring - Albert Amaya DO Allergies Allergy/AdvReac Type Severity Reaction Status Date / Time ampicillin Allergy Intermediate Hives Verified 06/16/19 06:33 Iodinated Contrast Media Allergy Mild itching Verified 06/16/19 06:33 [Iodinated Contrast- Oral and IV Dye] latex Allergy Mild Redness of Verified 06/16/19 06:33 Skin Medications Home Medications Medication Instructions Recorded Confirmed Last Taken clonazepam [Klonopin] 1 mg PO HS 07/12/18 06/16/19 06/14/19 22:00 ferrous sulfate [iron] 325 mg PO QAM 07/12/18 06/16/19 06/15/19 08:00 venlafaxine [Effexor XR] 75 mg PO QAM 07/12/18 06/16/19 06/16/19 04:00 venlafaxine [Effexor XR] 150 mg PO QAM 07/12/18 06/16/19 06/16/19 04:00 acetaminophen [Tylenol Extra 1,000 mg PO Q6H PRN 08/07/18 06/16/19 08/07/18 05:00 Strength] cyclobenzaprine 10 mg PO TID PRN 06/02/19 06/16/19 Unknown ergocalciferol (vitamin D2) 50,000 unit PO WK 06/02/19 06/16/19 06/15/19 08:00 [Vitamin D2] gabapentin 300 mg PO TID 06/02/19 06/16/19 06/15/19 18:00 levothyroxine [Synthroid] 50 mcg PO QAM 06/02/19 06/16/19 06/16/19 04:00 levothyroxine [Synthroid] 112 mcg PO QAM 06/02/19 06/16/19 06/16/19 04:00 lorazepam [Ativan] 1 mg PO HS 06/02/19 06/16/19 06/14/19 21:00 rizatriptan [Maxalt-CUPOLA LINER] 5 mg PO DAILY PRN 06/02/19 06/16/19 Unknown zolpidem 12.5 mg PO HS 06/02/19 06/16/19 06/14/19 21:00 oxycodone 5 mg PO Q4H PRN #30 tab 06/16/19 Unknown lorazepam 0.5 mg PO Q8H #20 tab 06/17/19 Unknown Past Medical History Medical History Anemia Anxiety Arthritis Chronic back pain B/L LE RADICULOPATHY/NEUROPATHY Depression History of intestinal obstruction POST GASTRIC BYPASS History of seizure 2014 - MULTIPLE TRAUMATIC ISSUES LED TO ONE EPISODE Hx of Lyme disease Hypothyroidism Insomnia Migraine Morbid obesity Spinal stenosis Past Family History Family History Brother Family history of diabetes mellitus Sister Family history of diabetes mellitus Father Family history of diabetes mellitus Mother Family history of diabetes mellitus Past Surgical History Surgical History History of back surgery History of bowel resection 2/2 obstruction after gastric bypass History of carpal tunnel release of both wrists History of section History of cholecystectomy History of colonoscopy History of dilatation and curettage History of gastric bypass History of herniorrhaphy x5; VENTRAL/INGUINAL History of tonsillectomy and adenoidectomy History of tooth extraction Social History Smoking Status: Current every day smoker tobacco type: cigarettes Smoking cigarettes per day: 15-20 Hx Alcohol Use: No Hx Substance Use: No substance use type: prescription drug Testing Laboratory Results Laboratory Tests 06/09/19 06/17/19 06/17/19 13:20 06:42 06:42 WBC 10.14 Hgb 10.2 L Hct 30.7 L Plt Count 198 PT 10.3 INR 1.0 APTT 27.3 Sodium 142 Potassium 3.9 Chloride 108 H Carbon Dioxide 30 BUN 16 Creatinine 0.92 Electrocardiogram Date: 07/16/19 Normal sinus rhythm Left posterior fascicular block Abnormal ECG No previous ECGs available Confirmed by Sp Crawford ([id number]) on 07/16/2018 1:47:21 PM Chest X-Ray Date: 07/16/19 Findings: + NAD
[~2019-07-31 10:57] MED LIST: ACETAMINOPHEN 500 MG TAB PO SCH; CEFAZOLIN - ALLERGY NOTED TO ORDERED MEDICATION SCH; CEFAZOLIN 2000MG 2,000 MG/15 ML SYR IV SCH; CeleBREX 200 MG CAP PO SCH; GABAPENTIN 900 MG DOSE PO SCH; LR 15ML/HR IV SCH
[2019-07-31] MEDS ORDERED: fentaNYL citrate 100 MCG/2 ML VIAL ONE ×4 (12:12→14:21)
[2019-07-31] MEDS ORDERED: MIDAZOLAM HCL 1 MG/ML 2ML VIAL ONE (12:12)
[2019-07-31] MEDS ORDERED: HYDROmorphone INJ 2 MG/ML SYR/VIAL ONE ×2 (12:12→14:10)
--- NOTE | 2019-07-31 12:18 | History & Physical Bridge Note ---
Date of Service July 31, 2019 History & Physical Bridge Note I have examined the patient, reviewed the History & Physical and in the interval since the performance of the History & Physical I have noted the following changes of clinical significance: no changes noted
--- NOTE | 2019-07-31 12:20 | History & Physical Report ---
Date of Service July 31, 2019 Assessment & Plan (1) Neurogenic claudication due to lumbar spinal stenosis: Revision fusion L3-L4 Present on Admission?: Yes History of Present Illness Primary Care Provider: Liu Patricia MD Allergies Allergy/AdvReac Type Severity Reaction Status Date / Time ampicillin Allergy Intermediate Hives Verified 07/31/19 11:43 Iodinated Contrast Media Allergy Mild itching Verified 07/31/19 11:43 [Iodinated Contrast- Oral and IV Dye] latex Allergy Mild Redness of Verified 07/31/19 11:43 Skin Home Medications Home Medications Medication Instructions Recorded Confirmed Type clonazepam [Klonopin] 1 mg PO HS 07/12/18 07/31/19 History ferrous sulfate [iron] 325 mg PO QAM 07/12/18 07/31/19 History venlafaxine [Effexor XR] 75 mg PO QAM 07/12/18 07/31/19 History venlafaxine [Effexor XR] 150 mg PO QAM 07/12/18 07/31/19 History acetaminophen [Tylenol Extra 1,000 mg PO Q6H PRN 08/07/18 07/31/19 History Strength] cyclobenzaprine 10 mg PO TID PRN 06/02/19 07/31/19 History ergocalciferol (vitamin D2) 50,000 unit PO WK 06/02/19 07/31/19 History [Vitamin D2] gabapentin 300 mg PO TID 06/02/19 07/31/19 History levothyroxine [Synthroid] 50 mcg PO QAM 06/02/19 07/31/19 History levothyroxine [Synthroid] 112 mcg PO QAM 06/02/19 07/31/19 History lorazepam [Ativan] 1 mg PO HS 06/02/19 07/31/19 History zolpidem 12.5 mg PO HS 06/02/19 07/31/19 History oxycodone 5 mg PO Q4H PRN #30 tab 06/16/19 07/31/19 Rx lorazepam 0.5 mg PO Q8H #20 tab 06/17/19 07/31/19 Rx rizatriptan [Maxalt] 10 mg PO UD PRN 07/28/19 07/31/19 History Past Med/Surg History Medical History Anemia Anxiety Arthritis Chronic back pain B/L LE RADICULOPATHY/NEUROPATHY Depression History of seizure 2015 - MULTIPLE TRAUMATIC ISSUES LED TO ONE EPISODE Hx of Lyme disease Hypothyroidism Insomnia Migraine Morbid obesity Spinal stenosis Surgical History History of back surgery LUMBAR FUSION History of bowel resection 2/2 obstruction after gastric bypass History of carpal tunnel release of both wrists History of section History of cholecystectomy History of colonoscopy History of dilatation and curettage History of gastric bypass History of herniorrhaphy x5; VENTRAL/INGUINAL History of tonsillectomy and adenoidectomy History of tooth extraction Family History Brother Family history of diabetes mellitus Sister Family history of diabetes mellitus Father Family history of diabetes mellitus Mother Family history of diabetes mellitus Social History Preferred Language: Syriac Communication Ability: Effective Ball Points Inspector Required: No Beliefs That Will Affect Care: None marital status: Current Living Situation: Spouse Other Information That Helps Us Care for You: No Feels Safe at Home: Yes Safety Concerns: Feels Safe At This Time Smoking Status: Never smoker Tobacco Type: cigarettes ; Cigarettes Per Day: 15- 20 ; Do You Dip or Chew Tobacco: No ; Second Hand Exposure: No ; Tobacco Cessation Education Requested by Patient: No Hx Alcohol Use: No Hx Substance Use: No Physical Exam Physical Exam: Patient is alert and oriented neurologically intact. Results & Data Vital Signs (Past 12 Hours) Vital Signs Temp Pulse Resp BP Pulse Ox 07/31/19 11:30 36.6 C 64 18 117/50 L 97
[2019-07-31] MEDS ORDERED: CLINDAMYCIN 600 MG/54 ML D5W IV ONE (12:37)
[2019-07-31] MEDS ORDERED: BUPIVACAINE/EPINEPHRINE 0.5% MPF 1:200,000 30 ML VIAL ONE (12:39)
[2019-07-31] MEDS ORDERED: BACITRACIN INJ 50,000 UNIT VIAL ONE (12:39)
[2019-07-31] MEDS ORDERED: ONDANSETRON INJ 2 MG/ML 2 ML VIAL IV PRN ×2 (12:42→16:36)
[2019-07-31] MEDS ORDERED: ATROPINE SULFATE 0.1 MG/ML 10ML SYR IV PRN (12:42)
[2019-07-31] MEDS ORDERED: METOCLOPRAMIDE HCL INJ 5 MG/ML 2 ML VIAL IV PRN ×2 (12:42→16:36)
[2019-07-31] MEDS ORDERED: PROMETHAZINE HCL 12.5 MG in SODIUM CHLORIDE 0.9% 50 ML IV PRN ×2 (12:42→16:36)
[2019-07-31] MEDS ORDERED: DEXAMETHASONE SOD INJ 4 MG/ML VIAL IV PRN (12:42)
[2019-07-31] MEDS ORDERED: fentaNYL citrate 100 MCG/2 ML VIAL IV PRN (12:42)
[2019-07-31] MEDS ORDERED: ePHEDrine sulfate 50 MG/ML AMP IV PRN (12:42)
[2019-07-31] MEDS ORDERED: VANCOMYCIN HCL 1000MG/20ML VIAL ONE (13:17)
[2019-07-31] MEDS ORDERED: GENTAMICIN SULFATE 40 MG/ML 2 ML VIAL ONE (13:17)
[2019-07-31] MEDS ORDERED: LARYING-O-JET KIT (LTA) ONE (13:26)
[2019-07-31] MEDS ORDERED: SODIUM CHLORIDE 0.9% INJ 10 ML VIAL ONE (13:49)
[2019-07-31] MEDS ORDERED: PHENYLEPHRINE 100MCG/ML 5ML SYR ONE (14:15)
[2019-07-31] MEDS ORDERED: PROPOFOL IV EMULSION 10 MG/ML 20 ML VIAL IV ONE (14:15)
[2019-07-31] MEDS ORDERED: NEOSTIGMINE METHYLSULFATE 1 MG/ML 10ML VIAL ONE (14:15)
[2019-07-31] MEDS ORDERED: METOCLOPRAMIDE HCL INJ 5 MG/ML 2 ML VIAL ONE (14:15)
[2019-07-31] MEDS ORDERED: KETOROLAC 30 MG/ML VIAL ONE (14:15)
[2019-07-31] MEDS ORDERED: ROCURONIUM BROMIDE 10 MG/ML 5 ML VIAL ONE (14:15)
[2019-07-31] MEDS ORDERED: ePHEDrine sulfate 50 MG/ML SYR ONE (14:15)
[2019-07-31] MEDS ORDERED: LIDOCAINE HCL 2% 2 ML VIAL/AMP(20MG/ML) INFIL ONE (14:15)
[2019-07-31] MEDS ORDERED: ONDANSETRON INJ 2 MG/ML 2 ML VIAL ONE (14:15)
[2019-07-31] MEDS ORDERED: DEXAMETHASONE SOD INJ 4 MG/ML VIAL ONE (14:15)
[2019-07-31] MEDS ORDERED: GLYCOPYRROLATE 0.2 MG/ML VIAL ONE (14:15)
--- NOTE | 2019-07-31 14:28 | Operative Report ---
Post Operative Report Pre & Post Diagnosis Operation Date: 07/31/19 12:50 Pre-Op Diagnosis: Migration of interbody cage. Postop Fracture of L3 pedicle bilaterally with migration of interbody cage. Procedure Operation Date: 07/31/19 12:50 Actual Procedures #1 removal of posterior instrumentation L3 pedicle screws and naga. #2 posterior instrumentation replaced at L3 with cross-link. #3 revision interbody fusion L3-4. #4 placement of stimulan beads. Surgeon Albert Amaya, DO Stock Raiser Mayte Marquez Estimated Blood Loss 275 Findings See Below The patient is 5 foot 6 inches tall weighing over 113 kg with a BMI in excess of 40. Patient's body habitus did add significant technical difficulty throughout the procedure increasing operative time and difficulty by at least 25%. Specimens None Indications This is a 43-year-old female well-known to me that presents with loosening of instrumentation and recurrence of her back and leg pain. Subsequently we elected to undergo the above-mentioned procedure. Description of Procedure Patient was met with identified and informed consent obtained. Patient was then taken to the operative suite underwent intubation placed in the prone position the Micky table on top of the Kevin frame. All bony prominences well-padded eyes inspected to ensure no external pressure placed upon the peer at this point the lumbar spine was prepped and draped in normal sterile fashion. Utilizing these previous incision site sharp dissection with the assistance of Bovie cautery was performed down to and exposing the instrumentation from L3-S1 1 bilaterally. I then removed the end caps and rods bilaterally. The bilateral L3 pedicle screws were obviously loose and I was able to remove them by simply pulling on them with a rondure. I subsequently on the left pedicle screw we oriented the screw in a different direction and was able to place a 6.5 x 50 mm screw on the left pedicle for much better purchase. On the right I elected to increase the screw to an 8.5 x 50 again noting excellent purchase and fixation. After this complete I reexposed the transforaminal space on the right identified the posterior margin of the interbody cage intruding into the canal. I was able to tamp the cage back into position revising interbody placement and fusion. The rods were then compressed locked into final position bilaterally. A cross- link was locked into position. I then placed approximately 5 cc of stimulant beads impregnated with vancomycin gentamicin throughout the incision site. 15 round CHANDNI drain was inserted. Incision was closed with 1 Vicryl in the fascia 2- 0 Vicryl subcutaneously and 4-0 Monocryl for final skin closure. Steri-Strip sterile dressings placed. Patient awakened taken to PACU stable condition. Please note Mayte Marquez present throughout the entire procedure involved the patient positioning complex portions of the surgery and final skin closure. Lastly spinal cord monitoring was utilized that the procedure no changes noted. I attest to the content of the Intraoperative Record and any orders documented therein. Any exceptions are noted below.
[2019-07-31] MEDS ORDERED: FLOSEAL HEMOSTATIC MATRIX 10ML TOP ONE (14:31)
[2019-07-31] MEDS ORDERED: ESMOLOL HCL INJ 10 MG/ML 10ML VIAL IV ONE (14:37)
--- NOTE | 2019-07-31 14:38 | Fluoroscopy Report ---
LUMBAR SPINE, INTRAOPERATIVE FLUOROSCOPY HISTORY: L3-L4 revision and fusion.. FLUOROSCOPY TIME: 34 seconds. FINDINGS: Intraoperative fluoroscopy was provided for the lumbar spine. 2 fluoroscopic spot images we re obtained. Posterior decompression and fusion from L3 through S1 with pedicle screws and rods. The hardware appears intact. IMPRESSION: Fluoroscopy provided for a L3-S1 posterior decompression and fusion. Electronically signed by: Bello Otero M.D. 07/31/2019 2:37 PM
[2019-07-31] MEDS: fentaNYL citrate 100 MCG/2 ML VIAL IV PRN ×4 (15:01→15:18)
[2019-07-31] MEDS: HYDROmorphone INJ 2 MG/ML SYR/VIAL IV PRN ×4 (15:23→15:41)
[2019-07-31] MEDS: LACTATED RINGER'S 1,000 ML IV SCH ×2 (16:20→23:44)
--- NOTE | 2019-07-31 16:23 | Anesthesiology Progress Note ---
Date of Service July 31, 2019 Anesthesia Post Procedure Vital Signs Vital Signs: Temp Pulse Pulse Resp BP BP Pulse Ox 07/31/19 15:50 36.5 C 77 23 115/65 97 07/31/19 15:40 75 21 120/69 100 07/31/19 15:30 89 15 154/68 H 100 07/31/19 15:20 91 H 21 149/87 H 100 07/31/19 15:10 89 17 141/127 H 100 07/31/19 15:00 81 19 149/103 H 100 07/31/19 14:51 85 15 119/88 100 07/31/19 14:43 37.3 C 84 14 138/91 100 07/31/19 11:30 36.6 C 64 18 117/50 L 97 Pain Intensity Lower Back: Pain Intensity: 5 Transfer of Care Handoff Completed per policy Notes Mental Status: alert / awake / arousable and participated in evaluation Patient Amnestic to Procedure: Yes Nausea / Vomiting: adequately controlled Pain: adequately controlled Airway Patency, RR, SpO2: stable & adequate BP & HR: stable & adequate Hydration State: stable & adequate Anesthetic Complications: no major complications apparent
[2019-07-31] MEDS ORDERED: TRAMADOL HCL 50 MG TABLET PO PRN (16:36)
[2019-07-31] MEDS ORDERED: LORazepam 0.5 MG/1 ML VIAL IV PRN (16:36)
[2019-07-31] MEDS ORDERED: SOD PHOSPHATE/SOD BIPHOSPHATE ENEMA 132 ML BTL PR PRN (16:36)
[2019-07-31] MEDS ORDERED: LORazepam 0.5 MG TAB PO SCH (16:36)
[2019-07-31] MEDS ORDERED: RIZATRIPTAN BENZOATE 10 MG TAB PO PRN (16:36)
[2019-07-31] MEDS ORDERED: HYDROmorphone INJ 0.5 MG/0.5 ML SYR IV PRN (16:36)
[2019-07-31] MEDS ORDERED: ONDANSETRON 4 MG TAB PO PRN (16:36)
[2019-07-31] MEDS ORDERED: ACETAMINOPHEN 500 MG TAB PO PRN ×2 (16:36)
[2019-07-31] MEDS ORDERED: bisacodyL 10 MG SUPP PR PRN (16:36)
[2019-07-31] MEDS ORDERED: DO NOT ADMINISTER FLU VACCINE PRN (16:36)
[2019-07-31] MEDS ORDERED: MAGNESIUM HYDROXIDE SUSP 30 ML UDC PO PRN (16:36)
[2019-07-31] MEDS ORDERED: NALOXONE HCL 0.4 MG/1 ML VIAL/CARP IV PRN (16:36)
[2019-07-31] MEDS ORDERED: ACETAMINOPHEN 1,000 MG/100 ML VIAL IV PRN (16:36)
[2019-07-31] MEDS ORDERED: ALUMINUM/MAGNESIUM SUSP 30 ML UDC PO PRN (16:36)
[2019-07-31] MEDS ORDERED: DO NOT ADMINISTER PNEUMOCOCCAL VACCINE PRN (16:36)
[2019-07-31] MEDS ORDERED: FAMOTIDINE 20 MG TAB PO PRN (16:36)
[2019-07-31] MEDS ORDERED: LORazepam 0.5 MG TAB PO PRN (16:36)
[2019-07-31] MEDS ORDERED: CYCLOBENZAPRINE HCL 10 MG TAB PO PRN (17:00)
[2019-07-31] MEDS: OXYCODONE HCL IR 5 MG TAB (IMMEDIATE RELEASE) PO PRN ×2 (17:04→23:08)
[2019-07-31] MEDS: KETOROLAC 30 MG/ML VIAL IV SCH ×2 (18:27→23:46)
[2019-07-31] MEDS: GABAPENTIN 300 MG CAP PO SCH (20:35)
[2019-07-31] MEDS: ZOLPIDEM TARTRATE 10 MG TAB PO SCH (20:35)
[2019-07-31] MEDS: DOCUSATE SODIUM/SENNA 50/8.6MG TAB PO SCH (20:35)
[2019-07-31] MEDS: CLINDAMYCIN 600 MG in DEXTROSE 5% 50 ML IV SCH (20:35)
[2019-07-31] MEDS: clonazePAM 0.5 MG TAB PO SCH (20:35)
[2019-07-31] MEDS ORDERED: ATIVAN 1MG HOMEPACK PO SCH (21:00)
[2019-08-01] MEDS: CLINDAMYCIN 600 MG in DEXTROSE 5% 50 ML IV SCH (03:37)
[2019-08-01] MEDS: OXYCODONE HCL IR 5 MG TAB (IMMEDIATE RELEASE) PO PRN ×5 (04:47→23:18)
[2019-08-01] MEDS: KETOROLAC 30 MG/ML VIAL IV SCH ×2 (05:46→12:30)
[2019-08-01] MEDS: POLYETHYLENE (MIRALAX) 17 GM PACK PO SCH ×4 (05:46→23:17)
[2019-08-01] MEDS: LEVOTHYROXINE SODIUM 112 MCG TABLET PO SCH (05:47)
[2019-08-01] MEDS: LEVOTHYROXINE SODIUM 50 MCG TABLET PO SCH (05:47)
[2019-08-01 05:57] LABS: Basophils # (auto) 0.04 K/uL (0-0.2); Basophils % (auto) 0.4 %; Eosinophils # (auto) 0.02 K/uL (0-0.5); Eosinophils % (auto) 0.2 %; Hematocrit (blood only) 32.1 % (37-47); Hemoglobin 10.2 g/dL (12.0-16.0); Immature Granulocytes # (auto) 0.02 K/uL (0.00-0.02); Immature Granulocytes % (auto) 0.2 %; Mean Corpuscular Hemoglobin 29.6 pg (25-34); Mean Corpuscular Hgb Conc 31.8 g/dL (32-36); Mean Platelet Volume 10.5 fL (7.4-10.4); Monocytes # (auto) 0.79 K/uL (0.11-0.59); Monocytes % (auto) 7.1 %; Neutrophils # (auto) 8.24 K/uL (1.4-6.5); Neutrophils % (auto) 74.1 %; Platelet Count 271 K/uL (130-400); RDW Standard Deviation 47.5 fL (36.4-46.3); Red Blood Count 3.45 M/uL (4.2-5.4); White Blood Count 11.11 K/uL (4.8-10.8)
[2019-08-01] MEDS ORDERED: CLINDAMYCIN 600 MG/54 ML BAG IV SCH (06:00)
[2019-08-01] MEDS: LACTATED RINGER'S 1,000 ML IV SCH (06:07)
[2019-08-01 06:32] LABS: BUN Creatinine Ratio 14.2 (10-20); Calcium 8.2 mg/dl (8.5-10.1); Creatinine Clr Calc Pharmacy 124.2 ml/min; Est GFR (African American) 115.3; Est GFR (Non-African American) 99.5; Potassium 3.9 mmol/L (3.5-5.1)
[2019-08-01] MEDS: GABAPENTIN 300 MG CAP PO SCH ×3 (08:28→20:16)
[2019-08-01] MEDS: FERROUS SULFATE 325 MG TAB PO SCH (08:28)
[2019-08-01] MEDS: VENLAFAXINE HCL XR 75 MG CAPXR PO SCH (08:29)
[2019-08-01] MEDS: VENLAFAXINE HCL XR 150 MG CAPXR PO SCH (08:29)
--- NOTE | 2019-08-01 09:44 | Anesthesiology Progress Note ---
Date of Service August 01, 2019 Anesthesia Post Procedure Vital Signs Vital Signs: Temp Pulse Pulse Resp BP BP Pulse Ox 08/01/19 07:23 36.7 C 58 L 16 91/57 L 96 08/01/19 04:56 36.5 C 67 16 105/70 96 07/31/19 22:50 36.9 C 81 16 125/70 96 07/31/19 19:12 37 C 84 16 100/61 94 07/31/19 18:07 36.9 C 78 16 102/66 93 07/31/19 17:12 36.8 C 83 17 96/63 L 94 07/31/19 16:48 36.7 C 78 16 102/63 92 07/31/19 16:15 37 C 76 22 102/65 98 07/31/19 15:50 36.5 C 77 23 115/65 97 07/31/19 15:40 75 21 120/69 100 07/31/19 15:30 89 15 154/68 H 100 07/31/19 15:20 91 H 21 149/87 H 100 07/31/19 15:10 89 17 141/127 H 100 07/31/19 15:00 36.3 C L 81 19 149/103 H 100 07/31/19 14:51 85 15 119/88 100 07/31/19 14:43 37.3 C 84 14 138/91 100 07/31/19 11:30 36.6 C 64 18 117/50 L 97 Pain Intensity Lower Back: Pain Intensity: 8 Notes Mental Status: alert / awake / arousable Patient Amnestic to Procedure: Yes Nausea / Vomiting: adequately controlled Pain: adequately controlled Airway Patency, RR, SpO2: stable & adequate BP & HR: stable & adequate Hydration State: stable & adequate Anesthetic Complications: no major complications apparent and Pt Satisfied with anesthetic care
--- NOTE | 2019-08-01 13:34 | Orthopedic Progress Note ---
Date of Service August 01, 2019 Assessment & Plan (1) Spinal stenosis, lumbar region with neurogenic claudication: At this time will initiate physical therapy monitor her CHANDNI output for discharge home this weekend. Present on Admission?: Yes Subjective Patient's back pain is much improved. Leg symptoms markedly improved. Physical Exam Physical Exam: Patient has good strength testing appears comfortable. Results & Data Vital Signs (Past 12 Hours) Vital Signs Temp Pulse Resp BP Pulse Ox 08/01/19 11:21 37.1 C 72 16 116/72 96 08/01/19 07:23 36.7 C 58 L 16 91/57 L 96 08/01/19 04:56 36.5 C 67 16 105/70 96
[2019-08-01] MEDS: ZOLPIDEM TARTRATE 10 MG TAB PO SCH (20:17)
[2019-08-01] MEDS: DOCUSATE SODIUM/SENNA 50/8.6MG TAB PO SCH (20:17)
[2019-08-01] MEDS: clonazePAM 0.5 MG TAB PO SCH (20:17)
[2019-08-02] MEDS: LEVOTHYROXINE SODIUM 112 MCG TABLET PO SCH (05:51)
[2019-08-02] MEDS: POLYETHYLENE (MIRALAX) 17 GM PACK PO SCH (05:51)
[2019-08-02] MEDS: LEVOTHYROXINE SODIUM 50 MCG TABLET PO SCH (05:51)
[2019-08-02] MEDS: OXYCODONE HCL IR 5 MG TAB (IMMEDIATE RELEASE) PO PRN ×2 (05:56→10:15)
[2019-08-02] MEDS: VENLAFAXINE HCL XR 150 MG CAPXR PO SCH (08:43)
[2019-08-02] MEDS: FERROUS SULFATE 325 MG TAB PO SCH (08:43)
[2019-08-02] MEDS: GABAPENTIN 300 MG CAP PO SCH (08:43)
[2019-08-02] MEDS: VENLAFAXINE HCL XR 75 MG CAPXR PO SCH (08:43)
--- NOTE | 2019-08-02 10:04 | Discharge Summary ---
Date of Service August 02, 2019 Principal Diagnosis Failed fusion L3-4. Discharge Data Allergies Allergy/AdvReac Type Severity Reaction Status Date / Time ampicillin Allergy Intermediate Hives Verified 07/31/19 11:43 Iodinated Contrast Media Allergy Mild itching Verified 07/31/19 11:43 [Iodinated Contrast- Oral and IV Dye] latex Allergy Mild Redness of Verified 07/31/19 11:43 Skin Consultations 07/31/19 16:36 Consult Case Management - Discharge Planning Routine Procedures Performed Operation Date: 07/31/19 12:50 Actual Procedures p L3-L4 Revision Fusion, Spinal Cord Monitoring(Not Applicable) - Albert Amaya DO Ordered Studies 07/31/19 12:50 FL fluoroscopy <1hr Routine FL lumbar spine 2-3V Routine Hospital Course (1) Neurogenic claudication due to lumbar spinal stenosis: Patient underwent revision fusion L3-4. She tolerated as well as taken to the orthopedic for postoperative. Postop day and when she was up and ambulating progressed to postop day 2. Strength is intact. CHANDNI drain decreasing appropriately. Pain well controlled. Subsequently discharged home. Discharge orders and instructions found in the chart for further review. Total Time Total Time Spent Total Time Spent (In Minutes): 20 minutes Discharge Plan Discharge Items Patient Disposition: Home - Self-Care Reason For Visit: Breakdown (Mechanical) of Internal Fixation Device Discharge Diagnosis: Migration of hardware L3-4. Activity: Per Instructions section Non-emergency contact: Primary Care Provider Call non-emergency contact if: you have any medication questions Follow-up/Referrals: Liu Patricia MD [Primary Care Provider] - Diet: Regular Addtl Attending Provider Instructions: ACTIVITY RECOMMENDATIONS: SELF CARE INSTRUCTIONS AFTER THORACIC/LUMBAR FUSIONS 1. You may walk to your tolerance. It is good exercise for your legs and back. Expect some back and intermittent leg aches and pains. 2. You may perform "counter-top" level activities (make a sandwich, mary with a project, etc.). 3. No bending or lifting of more than 10 pounds or back twisting of any nature (roll like a log when turning in bed). 4. You may ride in a car for 20-30 minutes at a time. No driving until after your first visit with your doctor. 5. Frequent changes of position and restricting sitting to 30 minutes at a time will help limit the amount of back spasms and stiffness you may experience. 6. You may discontinue the use of ambulatory aids (cane, crutches, etc.) once your strength and confidence allow. 7. You may fire control system installer the shower and let water strike your incision when you arrive home at least once daily. Do not take a tub bath, sit in a hot tub or go into a swimming pool until after your first recheck in the office. SPECIAL CARE INSTRUCTIONS: VERY IMPORTANT TO READ AND REVIEW A. Your surgical incision has been closed with a cosmetic suture under the skin that will dissolve in about 6 weeks. In 14 days, you can use a pair of clean scissors and cut the suture that is left outside of the skin at the ends of your incision. 1. The small skin tapes can be removed 7 days after surgery if they have not fallen off by that point. 2. You may keep the wound open to air as much as possible to promote healing after post-op day number 5 unless told otherwise by your doctor. 3. If you think the wound looks like it is becoming infected (redness or worsening drainage) and/or you are experiencing fever, chill or worsening back pain and muscle spasms, contact the office so that we may evaluate you as soon as possible. B. Complications are uncommon, but please contact us if you have any signs or symptoms of: 1. wound infection (fever higher than 102.5 degrees F, redness, separation of wound, drainage, or increasing pain from the incision) 2. blood clots in legs (pain, swelling, redness and warmth in legs) 3. urinary tract infection (fever higher than 102.5 degrees F, burning upon urination or increased frequency of urination) 4. nerve problems (inability to walk on your toes or heels, numbness, loss of bowel or bladder control) 5. any other symptoms that concern you C. Please call the office at if you have any concerns or questions about your operation or recovery. D. No smoking! Smoking drastically decreases the chance of a solid fusion. E. Do not take any anti-inflammatory medications (Indocin, Advil, Motrin, Asp irin, Naprosyn, etc.) as these may inhibit the chance of a solid fusion. Tylenol is okay to take for pain. MANAGING PAIN AFTER SPINAL SURGERY 1. Narcotic medication is intended for short-term use and will be provided for surgical pain. Surgical pain usually lasts for a period of 4-6 weeks. Narcotic medication includes Percocet, Vicodin, Darvocet, Tylenol #3 or Lortab. 2. Longer-term pain is more appropriately treated with non-narcotic medication such as Tylenol ES. 3. Muscle spasm is not appropriately treated with narcotics. Muscle relaxers such as Soma, Flexeril or Skelaxin can be used along with Tylenol ES. 4. Remember that we all live with some "aches and pains". This is not unusual or uncommon after an injury or as we get older. a. Back pain is expected and may include muscle spasms for 4 to 6 weeks after surgery. The pain should gradually improve. If the pain worsens for no apparent reason, please contact the office. b. Intermittent leg pain may also be experienced and should not be concerned about unless it worsens for no apparent reason. If so, please contact the office. 5. We will provide appropriate medication within the normal guidelines of their prescribed use. We will also be very cautious and aware of potential abuse and extended duration of patients' medication needs. a. Pain medications are for your comfort and to assist with sleep and rest so that the tissue can heal. They are not provided in order to return to normal activity and should not be used through the day. To do so or worsening pain at night can result from ongoing tissue damage and development of tolerance to the prescribed medicine. 6. Please allow 2-3 days to process refills. Prescriptions will not be mailed but must be picked up at the office. FOLLOW UP VISIT: Keep your scheduled follow-up appointment. Any questions, please call the office at . Pending Studies at Discharge: No Stand-Alone Forms: [facility] Medications and DC Order Prescriptions: New oxycodone 5 mg Tablet 5 mg PO Q4H PRN (Reason: Pain, Severe) Qty: 30 RF: 0 Continued cyclobenzaprine 10 mg Tablet 10 mg PO TID PRN (Reason: BACK SPASMS) RF: 0 levothyroxine [Synthroid] 50 mcg Tablet 50 mcg PO QAM RF: 0 gabapentin 300 mg Capsule 300 mg PO TID RF: 0 levothyroxine [Synthroid] 112 mcg Tablet 112 mcg PO QAM RF: 0 zolpidem 12.5 mg Tablet,Ext Release Multiphase 12.5 mg PO HS RF: 0 ergocalciferol (vitamin D2) [Vitamin D2] 50,000 unit Capsule 50,000 unit PO WK RF: 0 lorazepam [Ativan] 1 mg Tablet 1 mg PO HS RF: 0 oxycodone 5 mg Tablet 5 mg PO Q4H PRN (Reason: Pain) Qty: 30 RF: 0 lorazepam 0.5 mg Tablet 0.5 mg PO Q8H Qty: 20 RF: 0 venlafaxine [Effexor XR] 75 mg Capsule,Extended Release 24hr 75 mg PO QAM RF: 0 clonazepam [Klonopin] 0.5 mg Tablet 1 mg PO HS RF: 0 venlafaxine [Effexor XR] 150 mg Capsule,Extended Release 24hr 150 mg PO QAM RF: 0 ferrous sulfate [iron] 325 mg (65 mg iron) Tablet 325 mg PO QAM RF: 0 acetaminophen [Tylenol Extra Strength] 500 mg Tablet 1,000 mg PO Q6H PRN (Reason: Pain) RF: 0 rizatriptan [Maxalt] 10 mg Tablet 10 mg PO UD PRN (Reason: MIGRAINES) RF: 0 Discharge Orders: Discharge Order (Routine); Ordered 08/02/19 Ordered By: Albert Amaya Admission Data Admit Date/Time: 07/31/19 14:32 Attending Provider: Albert Amaya Admit Provider: Albert Amaya Primary Care Provider: Liu Patricia
== END 2019-08-02 11:30 | disposition home or self-care (01) | DRG 516 ==
LOC: ASU 10:57 → 3E 14:32

== ENCOUNTER 2021-06-06 05:57 | Observation (INO) ==
--- NOTE | 2021-05-20 12:46 | PAT Medication Instructions ---
Medication Instructions Date of Service May 20, 2021 Home Medications ferrous sulfate 325 mg (65 mg iron) tablet (iron) 325 mg PO QAM acetaminophen 500 mg tablet (Tylenol Extra Strength) 1,000 mg PO Q6H PRN cyclobenzaprine 10 mg tablet 10 mg PO TID PRN ergocalciferol (vitamin D2) 1,250 mcg (50,000 unit) capsule (Vitamin D2) 50,000 unit PO WK zolpidem 12.5 mg tablet,extended release,multiphase 10 mg PO HS rizatriptan 10 mg tablet (Maxalt) 10 mg PO UD PRN alprazolam 0.5 mg tablet (Xanax) 0.5 mg PO TID atorvastatin 20 mg tablet 20 mg PO QAM celecoxib 200 mg capsule (Celebrex) 200 mg PO BID citalopram 20 mg tablet 20 mg PO QAM docusate sodium 100 mg tablet (Stool Softener) 100 mg PO QAM levothyroxine 175 mcg tablet 175 mcg PO QAM pregabalin 75 mg capsule (Lyrica) 75 mg PO TID ASK your surgeon for instructions celecoxib 200 mg capsule (Celebrex) 200 mg PO BID DO NOT take the morning of surgery ferrous sulfate 325 mg (65 mg iron) tablet (iron) 325 mg PO QAM cyclobenzaprine 10 mg tablet 10 mg PO TID PRN ergocalciferol (vitamin D2) 1,250 mcg (50,000 unit) capsule (Vitamin D2) 50,000 unit PO WK docusate sodium 100 mg tablet (Stool Softener) 100 mg PO QAM Take morning of surgery With a small sip of water, OTHERWISE NOTHING TO EAT OR DRINK AFTER MIDNIGHT: acetaminophen 500 mg tablet (Tylenol Extra Strength) 1,000 mg PO Q6H PRN (okay to take up to 4 hours prior to surgery if needed) rizatriptan 10 mg tablet (Maxalt) 10 mg PO UD PRN (if needed) alprazolam 0.5 mg tablet (Xanax) 0.5 mg PO TID atorvastatin 20 mg tablet 20 mg PO QAM citalopram 20 mg tablet 20 mg PO QAM levothyroxine 175 mcg tablet 175 mcg PO QAM pregabalin 75 mg capsule (Lyrica) 75 mg PO TID Take evening before surgery acetaminophen 500 mg tablet (Tylenol Extra Strength) 1,000 mg PO Q6H PRN (if needed) cyclobenzaprine 10 mg tablet 10 mg PO TID PRN (if needed) zolpidem 12.5 mg tablet,extended release,multiphase 10 mg PO HS rizatriptan 10 mg tablet (Maxalt) 10 mg PO UD PRN (if needed) alprazolam 0.5 mg tablet (Xanax) 0.5 mg PO TID pregabalin 75 mg capsule (Lyrica) 75 mg PO TID Other Notes If you have any questions please call us at [phone] or [phone] or [phone] or [phone]
--- NOTE | 2021-05-23 15:13 | Anesthesiology Consultation ---
Date of Service May 23, 2021 Assessment & Plan (1) Encounter for pre-operative examination: - COVID screening: Per assessment on 05/23: Travel screen negative, no known COVID-19 positive contacts or current COVID-19 related symptoms. Patient vaccinated. Surgeon arranging preop COVID testing. Awaiting results. - S/P L3 screws + interbody cage revision (07/31/19): Grade view 1, MAC#3 at [facility] Chart Review Chart Review: Acceptable Risk for Surgery and Patient seen in Pre Admission Testing Teaching & Discussion Pre-Anesthesia Teaching/Discussion Notes: Instructed NPO after midnight before surgery,except medications with 15 cc of water. Medication instructions provided according to the PAT guidelines. History Surgery Operation Date: 06/06/21 09:35 Proposed Procedures p C4-C7 Anterior Cervical Discectomy and Fusion, Possible C3-C4, Possible Corpectomy, Spinal Cord Monitoring - Albert Amaya, Height/Weight Height: 5 ft 6.5 in Weight: 121.2 kg Allergies Allergy/AdvReac Type Severity Reaction Status Date / Time ampicillin Allergy Intermediate Hives Verified 05/18/21 13:39 Iodinated Contrast Media Allergy Mild Itching Verified 05/23/21 15:13 [Iodinated Contrast- Oral and IV Dye] latex Allergy Mild Skin Verified 05/23/21 15:13 redness Medications Home Medications Medication Instructions Recorded Confirmed Last Taken ferrous sulfate 325 mg (65 mg 325 mg PO QAM 07/12/18 05/18/21 07/30/19 10:30 iron) tablet (iron) acetaminophen 500 mg tablet 1,000 mg PO Q6H PRN 08/07/18 05/18/21 07/28/19 (Tylenol Extra Strength) cyclobenzaprine 10 mg tablet 10 mg PO TID PRN 06/02/19 05/18/21 07/30/19 21:00 ergocalciferol (vitamin D2) 1,250 50,000 unit PO WK 06/02/19 05/18/21 07/27/19 mcg (50,000 unit) capsule (Vitamin D2) zolpidem 12.5 mg tablet,extended 10 mg PO HS 06/02/19 05/18/21 07/30/19 21:00 release,multiphase rizatriptan 10 mg tablet (Maxalt) 10 mg PO UD PRN 07/28/19 05/18/21 Unknown alprazolam 0.5 mg tablet (Xanax) 0.5 mg PO TID 05/18/21 05/18/21 Unknown atorvastatin 20 mg tablet 20 mg PO QAM 05/18/21 05/18/21 Unknown celecoxib 200 mg capsule (Celebrex) 200 mg PO BID 05/18/21 05/18/21 Unknown citalopram 20 mg tablet 20 mg PO QAM 05/18/21 05/18/21 Unknown docusate sodium 100 mg tablet 100 mg PO QAM 05/18/21 05/18/21 Unknown (Stool Softener) levothyroxine 175 mcg tablet 175 mcg PO QAM 05/18/21 05/18/21 Unknown pregabalin 75 mg capsule (Lyrica) 75 mg PO TID 05/18/21 05/18/21 Unknown Past Medical History Medical History Anemia Anxiety Arthritis Chronic back pain B/L LE radiculopathy/neuropathy Depression History of seizure Single episode (2014) r/t "traumatic issues"/no issues since Follows with Dr. Inés Amaro ([place]) and Dr. Carmona ([place]) Hx of Lyme disease 2015 s/p treatment Hyperlipidemia Hypothyroidism Insomnia Migraine Morbid obesity Osteoarthritis Spinal stenosis Temporomandibular joint disorder R/L, no locking x years Exercise / Class Metabolic Activity II 4-5 Yardwork/Stairs/Walk up hill (one FS (no CP, no SOB)) Past Family History Family History Brother Family history of diabetes mellitus Sister Family history of diabetes mellitus Father Family history of diabetes mellitus Mother Family history of diabetes mellitus Past Surgical History Surgical History History of arthroscopy Right History of back surgery Including lumbar fusion (total x3 surgeries) L3 screws + interbody cage revision (07/31/19): Grade view 1, MAC#3 at [facility] History of bowel resection 2/2 obstruction after gastric bypass History of carpal tunnel release of both wrists History of section History of cholecystectomy History of colonoscopy History of dilatation and curettage History of esophagogastroduodenoscopy (EGD) History of gastric bypass History of herniorrhaphy x5 (ventral/inguinal) History of hysterectomy + USO History of tonsillectomy and adenoidectomy History of tooth extraction Past Anesthesia History No Hx of Anesthesia Complications and No Family Hx of Anesthesia Complications History of PONV No Hx of PONV and Hx of Motion Sickness (+ cars) STOP BANG Total 2 Social History Smoking Status: Former smoker tobacco type: cigarettes Do You Dip or Chew Tobacco: No Smoking End Date: Quit 11/19/2018 (hx 15-20 cigs/day) Hx Alcohol Use: No Hx Substance Use: Yes substance use type: marijuana (Medical marijuana (+ card) > Oral gummies, drops, oil) Review of Systems Patient denies chest pain, shortness of breath, dyspnea on exertion, fever, chills, cough, wheezing, palpitations. Physical Exam Vital Signs VITALS BP 106/67 P 62 TEMP 98.1 SP02 95%RA RESP 16 PHYSICAL Decreased cervical extension range of motion. Full TMJ range of motion. TMD 3.5 finger breaths Mallampati Score 3 Dentition: upper right molar (tooth repair ? filing fell out- dentist trying to get in before surgery, pt will make surgeon's office aware if scheduling before surgery) Lungs: clear throughout to auscultation Cardiac: regular rate and rhythm, no murmurs noted Spine: normal Carotid arteries: negative bruit Extremities: no edema Lab Results Anesthesia Preop Results Results Anesthesia Widget: WBC 9.85 K/uL (4.8-10.8) 05/23/21 Hgb 14.3 g/dL (12.0-16.0) 05/23/21 Hct 43.0 % (37-47) 05/23/21 Plt 242 K/uL (130-400) 05/23/21 Na 140 mmol/L (136-145) 05/23/21 K 3.8 mmol/L (3.5-5.1) 05/23/21 Cl 109 mmol/L (98-107) H 05/23/21 CO2 26 mmol/L (21-32) 05/23/21 BUN 17 mg/dl (7-18) 05/23/21 Creat 0.80 mg/dl (0.6-1.2) 05/23/21 Glucose Level 98 mg/dl (70-99) 05/23/21 PT 10.0 Seconds (9.0-12.0) 05/23/21 PTT 27.9 Seconds (21.0-31.0) 05/23/21 INR 1.0 (0.9-1.1) 05/23/21 Urine Color Yellow 05/23/21 Urine Appearance Clear (Clear) 05/23/21 Urine pH 5.5 (4.5-7.5) 05/23/21 Urine Specific [place] 1.011 (1.000-1.030) 05/23/21 Urine Protein Negative (Negative) 05/23/21 Urine Glucose (UA) Negative (Negative) 05/23/21 Urine Ketones Negative (Negative) 05/23/21 Urine Blood Negative (Negative) 05/23/21 Urine Nitrite Negative (Negative) 05/23/21 Urine Bilirubin Negative (Negative) 05/23/21 Urine Urobilinogen Negative (Negative) 05/23/21 Urine Leukocyte Esterase Negative (Negative) 05/23/21 Blood Type A Positive 05/23/21 Antibody Screen NEGATIVE 05/23/21 Testing Electrocardiogram Date: 05/23/21 NSR at 61bpm. Right axis deviation. unconfirmed report. Chest X-Ray Date: 05/23/21 FINDINGS: Cardiomediastinal and hilar silhouettes are within normal limits. No pneumothorax, pleural effusion, airspace consolidation or overt pulmonary edema. Degenerative changes of the shoulders and spine with suggested left shoulder rotator cuff calcific tendinosis. Upper abdominal herniorrhaphy coils. IMPRESSION: No acute process.
[2021-06-06] MEDS ORDERED: LR 15ML/HR IV SCH (06:00)
[2021-06-06] MEDS ORDERED: CeleBREX 200 MG CAP PO SCH (06:00)
[2021-06-06] MEDS ORDERED: CLINDAMYCIN 600 MG/54 ML BAG IV SCH (06:00)
[2021-06-06] MEDS ORDERED: GABAPENTIN 900 MG DOSE PO SCH (06:00)
[2021-06-06] MEDS ORDERED: ACETAMINOPHEN 500 MG TAB PO SCH (06:00)
[2021-06-06] MEDS ORDERED: ALBUMIN HUMAN 5% 12.5 GM/250 ML VIAL IV ONE (07:13)
[2021-06-06] MEDS ORDERED: SUGAMMADEX SODIUM 200 MG/2 ML VIAL IV ONE (07:14)
[2021-06-06] MEDS ORDERED: fentaNYL citrate 100 MCG/2 ML VIAL IV PRN (07:16)
[2021-06-06] MEDS ORDERED: PROMETHAZINE HCL 12.5 MG in SODIUM CHLORIDE 0.9% 50 ML IV PRN ×2 (07:16→12:41)
[2021-06-06] MEDS ORDERED: ONDANSETRON INJ 2 MG/ML 2 ML VIAL IV PRN ×2 (07:16→12:41)
[2021-06-06] MEDS ORDERED: ePHEDrine sulfate 50 MG/ML AMP IV PRN (07:16)
[2021-06-06] MEDS ORDERED: ATROPINE SULFATE 0.1 MG/ML 10ML SYR IV PRN (07:16)
[2021-06-06] MEDS ORDERED: SUCCINYLCHOLINE CHLORIDE 20 MG/ML 10 ML VIAL IV ONE (07:19)
[2021-06-06] MEDS ORDERED: PROPOFOL IV EMULSION 10 MG/ML 20 ML VIAL IV ONE (07:19)
[2021-06-06] MEDS ORDERED: HYDROmorphone INJ 2 MG/ML SYR/VIAL ONE ×2 (07:19→09:19)
[2021-06-06] MEDS ORDERED: DEXAMETHASONE SOD INJ 4 MG/ML VIAL ONE (07:19)
[2021-06-06] MEDS ORDERED: MIDAZOLAM HCL 1 MG/ML 2ML VIAL ONE (07:19)
[2021-06-06] MEDS ORDERED: ONDANSETRON INJ 2 MG/ML 2 ML VIAL ONE ×2 (07:19→10:03)
[2021-06-06] MEDS ORDERED: LARYING-O-JET KIT (LTA) ONE (07:19)
[2021-06-06] MEDS ORDERED: ROCURONIUM BROMIDE 10 MG/ML 5 ML VIAL IV ONE ×3 (07:19→09:18)
[2021-06-06] MEDS ORDERED: LIDOCAINE 2% 2 ML VIAL/AMP(20MG/ML) INFIL ONE (07:19)
--- NOTE | 2021-06-06 07:34 | History & Physical Bridge Note ---
Date of Service June 06, 2021 History & Physical Bridge Note I have examined the patient, reviewed the History & Physical and in the interval since the performance of the History & Physical I have noted the following changes of clinical significance: no changes noted
--- NOTE | 2021-06-06 07:35 | History & Physical Report ---
Date of Service June 06, 2021 Assessment & Plan (1) Myelopathy concurrent with and due to spinal stenosis of cervical region: Plan: C C4-C7 anterior cervical discectomy and fusion, possible C3-C4, possible corpectomy History of Present Illness Chief Complaint: Neck and arm pain Primary Care Provider: RAMAKRISHNA PCP This is a 45-year-old female presents with chronic persistent neck and arm pain after failing course of nonoperative care she is here for surgical invention. Allergies Allergy/AdvReac Type Severity Reaction Status Date / Time ampicillin Allergy Intermediate Hives Verified 06/06/21 06:25 Iodinated Contrast Media Allergy Mild Itching Verified 06/06/21 06:25 [Iodinated Contrast- Oral and IV Dye] latex Allergy Mild Skin Verified 06/06/21 06:25 redness Home Medications Medication Instructions Recorded Confirmed Type ferrous sulfate 325 mg (65 mg 325 mg PO QAM 07/12/18 06/06/21 History iron) tablet (iron) acetaminophen 500 mg tablet 1,000 mg PO Q6H PRN 08/07/18 06/06/21 History (Tylenol Extra Strength) cyclobenzaprine 10 mg tablet 10 mg PO TID PRN 06/02/19 06/06/21 History ergocalciferol (vitamin D2) 1,250 50,000 unit PO WK 06/02/19 06/06/21 History mcg (50,000 unit) capsule (Vitamin D2) zolpidem 12.5 mg tablet,extended 10 mg PO HS 06/02/19 06/06/21 History release,multiphase (Ambien CR) rizatriptan 10 mg tablet (Maxalt) 10 mg PO UD PRN 07/28/19 06/06/21 History alprazolam 0.5 mg tablet (Xanax) 0.5 mg PO TID 05/18/21 06/06/21 History atorvastatin 20 mg tablet 20 mg PO QAM 05/18/21 06/06/21 History celecoxib 200 mg capsule (Celebrex) 200 mg PO BID 05/18/21 06/06/21 History citalopram 20 mg tablet (Celexa) 20 mg PO QAM 05/18/21 06/06/21 History docusate sodium 100 mg tablet 100 mg PO QAM 05/18/21 06/06/21 History (Stool Softener) levothyroxine 175 mcg tablet 175 mcg PO QAM 05/18/21 06/06/21 History pregabalin 75 mg capsule (Lyrica) 75 mg PO TID 05/18/21 06/06/21 History Vitamin B-12 sliding scale dose SUBLINGUAL DAILY 06/06/21 History Past Med/Surg History Medical History Anemia Anxiety Arthritis Chronic back pain B/L LE radiculopathy/neuropathy Depression History of seizure Single episode (2014) r/t "traumatic issues"/no issues since Follows with Dr. Inés Amaro ([place]) and Dr. Carmona ([place]) Hx of Lyme disease 2014 s/p treatment Hyperlipidemia Hypothyroidism Insomnia Migraine Morbid obesity Osteoarthritis Spinal stenosis Temporomandibular joint disorder R/L, no locking x years Surgical History History of arthroscopy Right History of back surgery Including lumbar fusion (total x3 surgeries) L3 screws + interbody cage revision (07/31/19): Grade view 1, MAC#3 at [facility] History of bowel resection 2/2 obstruction after gastric bypass History of carpal tunnel release of both wrists History of section History of cholecystectomy History of colonoscopy History of dilatation and curettage History of esophagogastroduodenoscopy (EGD) History of gastric bypass History of herniorrhaphy x5 (ventral/inguinal) History of hysterectomy + USO History of tonsillectomy and adenoidectomy History of tooth extraction Family History Brother Family history of diabetes mellitus Sister Family history of diabetes mellitus Father Family history of diabetes mellitus Mother Family history of diabetes mellitus Social History (Updated 05/18/21 @ 14:13 by Perla Haji RN) Smoking Status: Never smoker Smoking End Date: Quit 11/19/2018 (hx 15-20 cigs/day); Second Hand Exposure: No; Do You Dip or Chew Tobacco: No; Hx Alcohol Use: No Hx Substance Use: No Preferred Language: Kazakh Communication Ability: Effective Oral Surgeon Required: No Beliefs That Will Affect Care: None marital status: Current Living Situation: Spouse current occupational status: unemployed Other Information That Helps Us Care for You: No Feels Safe at Home: Yes Safety Concerns: Feels Safe At This Time Assistive Devices: None Assistive Devices Comment: WEARS KNEE BRACES Physical Exam Physical Exam: Patient is alert and oriented Heart regular rhythm Lungs clear to auscultation Results & Data ([facility]) Vital Signs (Past 12 Hours) Vital Signs Temp Pulse Resp BP Pulse Ox 06/06/21 06:38 37.0 C 67 16 121/77 98
[2021-06-06] MEDS ORDERED: PHENYLEPHRINE 100MCG/ML 5ML SYR ONE (09:04)
[2021-06-06] MEDS ORDERED: FLOSEAL HEMOSTATIC MATRIX 10ML TOP ONE (10:05)
--- NOTE | 2021-06-06 10:18 | Operative Report ---
Post Operative Report Pre & Post Diagnosis Operation Date: 06/06/21 07:45 Pre-Op Diagnosis: Cervical spinal stenosis with myeloradiculopathy Morbid obesity Post-Op Diagnosis: Same I identified the patient and participated in the time-out.: Yes Procedure Operation Date: 06/06/21 07:45 Actual Procedures #1 anterior cervical corpectomy with bilateral foraminotomies C5. #2 anterior cervical discectomy with bilateral foraminotomies C3-4 and C6-C7. #3 anterior cervical arthrodesis C3-C4, see 4 to C6 and C6-C7. #4 placement peek cage 7 mm in height at C3-C4 25 mm in height at C4-C6 and 8 mm in height at C6-C7. #5 placement locally harvested morselized autograft combined with I factor and interbody cages. #6 application of woodruff plate and screws from C4-C7. Surgeon Albert Amaya, DO Second Crusher Mayte Marquez Estimated Blood Loss 25 Findings See Below Patient is 5 foot 6 weighing over 118 kg with a BMI in excess of 41. The patient's body habitus did contribute to significant technical difficulty from patient positioning through exposure. This had at least 50% increase to the operative time. Specimens None Indications Presents with marked clinical status and evidence of myeloradiculopathy is here for surgical invention. Description of Procedure Patient was met with identified informed consent obtained. Patient was then taken to the operative suite underwent ablation placed in spine position Martin with head Hines heading maker. All bony prominences well-padded eyes inspected to ensure no external pressure placed upon. This point the anterior cervical spine was prepped and draped in a sterile fashion. The assistance of fluorosco py identified the C3-4 disc base and a longitudinal incision was made along the right anterior aspect of the cervical spine. Blunt dissection with the assistance of bipolar electrocautery was performed down to and exposing the anterior cervical spine from C3-C7. Self-retaining retractors placed. Then performed a complete discectomy of C4-C5 out to the uncovertebral joints bilaterally followed by see 5 C6. [place] distraction pins were then placed in C4 and C5-6 to distract across the C5 vertebral body. A complete corpectomy was then performed including removal of all posterior annular fibers longitudinal ligament and bilateral foraminotomies. Endplates burred to subcortical being bone and 25 mm peek cage filled with locally harvested morselized autograft and I factor tapped in position. Distracting apparatus was removed and I proceeded to C3-C4. Again complete discectomy performed out to the SI joints bilaterally. [place] distracting pins again utilized. I performed a complete discectomy out to the uncovertebral's bilaterally. This included removal of all posterior fibers longitudinal ligament bilateral foraminotomies performed. Endplates burred to subcortical bleeding bone and 7 mm peek cage filled with locally harvested morselized autograft and I factor tapped in position. Then proceeded see 6 C7. Again complete discectomy performed out to the uncovertebral joints but bilaterally. This included removal of all posterior fibers longitudinal ligament bilateral foraminotomies performed. Endplates burred to subcortically bone and an 8 mm peek cage filled with locally harvested morselized autograft and I factor tapped in position. Distracting apparatus was removed all anterior osteophytes burred to a smooth cortical surface and a 5 complete screws applied with the assistance of fluoroscopy. Incision was then copiously irrigated explored to ensure no damage to surrounding structures remaining bleeding. 10 round CHANDNI drain inserted. The incision was then closed with 2 Vicryl in a fashion of 4 Monocryl for final skin closure. Steri-Strip Steri-Strips placed. Patient waken taken to PACU stable condition. Please note spinal cord monitoring was utilized at the procedure no changes noted. Lastly Mayte Marquez was present at the entire surgery involved the patient positioning complex portions of the surgery and final skin closure. I attest to the content of the Intraoperative Record and any orders documented therein. Any exceptions are noted below.
[2021-06-06] MEDS: HYDROmorphone INJ 2 MG/ML SYR/VIAL IV PRN ×4 (10:53→11:38)
[2021-06-06] MEDS ORDERED: ALBUT/IPRATROP 3MG/0.5MG NEB 3 ML VIAL NEB STA (11:04)
[2021-06-06] MEDS ORDERED: LORazepam 0.25 MG/0.5 ML VIAL IV STA (11:08)
[2021-06-06] MEDS ORDERED: HYDROmorphone INJ 2 MG/ML SYR/VIAL IV PRN (11:13)
[2021-06-06] MEDS ORDERED: LORazepam 2 MG/4 ML VIAL ONE (11:15)
--- NOTE | 2021-06-06 12:06 | Anesthesiology Progress Note ---
Date of Service June 06, 2021 Anesthesia Post Procedure Vital Signs Vital Signs: Temp Pulse Pulse Resp BP Pulse Ox 06/06/21 11:50 36.3 C L 107 H 12 137/106 H 93 06/06/21 11:40 99 H 12 143/106 H 94 06/06/21 11:30 103 H 13 138/108 H 96 06/06/21 11:27 96 H 14 95 06/06/21 11:20 98 H 13 150/110 H 93 06/06/21 11:10 94 H 17 128/104 H 93 06/06/21 11:00 105 H 17 161/96 H 96 06/06/21 10:50 99 H 14 165/98 H 93 06/06/21 10:40 104 H 12 169/100 H 95 06/06/21 10:30 36.5 C 108 H 14 175/98 H 94 06/06/21 06:38 37.0 C 67 16 121/77 98 Pain Intensity Neck: Pain Intensity: 4 Transfer of Care Handoff Completed per policy Notes Mental Status: alert / awake / arousable and participated in evaluation Patient Amnestic to Procedure: Yes Nausea / Vomiting: adequately controlled Pain: adequately controlled Airway Patency, RR, SpO2: stable & adequate BP & HR: stable & adequate Hydration State: stable & adequate Anesthetic Complications: no major complications apparent and Pt Satisfied with anesthetic care
[2021-06-06] MEDS ORDERED: RIZATRIPTAN BENZOATE 10 MG TAB PO PRN (12:41)
[2021-06-06] MEDS ORDERED: DO NOT ADMINISTER PNEUMOCOCCAL VACCINE PRN (12:41)
[2021-06-06] MEDS ORDERED: bisacodyL 10 MG SUPP PR PRN (12:41)
[2021-06-06] MEDS ORDERED: dexAMETHasone 8 MG in SYRINGE 0 ML IV PRN (12:41)
[2021-06-06] MEDS ORDERED: LORazepam 0.5 MG/1 ML VIAL IV PRN (12:41)
[2021-06-06] MEDS ORDERED: traMADol HCL 50 MG TABLET PO PRN (12:41)
[2021-06-06] MEDS ORDERED: LORazepam 0.5 MG TAB PO PRN (12:41)
[2021-06-06] MEDS ORDERED: SOD PHOSPHATE/SOD BIPHOSPHATE ENEMA 132 ML BTL PR PRN (12:41)
[2021-06-06] MEDS ORDERED: METOCLOPRAMIDE HCL INJ 5 MG/ML 2 ML VIAL IV PRN (12:41)
[2021-06-06] MEDS ORDERED: MAGNESIUM HYDROXIDE SUSP 30 ML UDC PO PRN (12:41)
[2021-06-06] MEDS ORDERED: DO NOT ADMINISTER FLU VACCINE PRN (12:41)
[2021-06-06] MEDS ORDERED: NALOXONE HCL 0.4 MG/1 ML VIAL/CARP IV PRN (12:41)
[2021-06-06] MEDS ORDERED: ACETAMINOPHEN 500 MG TAB PO PRN (12:41)
[2021-06-06] MEDS ORDERED: hydrOXYzine HCl 25 MG TAB PO PRN (12:41)
[2021-06-06] MEDS ORDERED: RACEPINEPHRINE 2.25% NEBU SOLN 0.5 ML VIAL INH PRN (12:41)
[2021-06-06] MEDS ORDERED: ACETAMINOPHEN 1,000 MG/100 ML VIAL IV PRN (12:41)
[2021-06-06] MEDS ORDERED: diphenhydrAMINE Capsule 25 MG CAP PO PRN (12:41)
[2021-06-06] MEDS ORDERED: ONDANSETRON 4 MG OD TAB PO PRN (12:41)
[2021-06-06] MEDS ORDERED: ALUMINUM/MAGNESIUM SUSP 30 ML UDC PO PRN (12:41)
[2021-06-06] MEDS ORDERED: HYDROmorphone INJ 0.5 MG/0.5 ML SYR IV PRN (12:41)
[2021-06-06] MEDS ORDERED: FAMOTIDINE 20 MG TAB PO PRN (12:41)
[2021-06-06] MEDS ORDERED: CYCLOBENZAPRINE HCL 10 MG TAB PO PRN (12:55)
--- NOTE | 2021-06-06 13:02 | Hospitalist Consultation ---
Date of Consultation June 06, 2021 Assessment & Plan (1) Myelopathy concurrent with and due to spinal stenosis of cervical region: - Pain management, bowel regimen and DVT ppx per the primary team - PT/OT consults - Follow am CBC to monitor for acute blood loss (2) Migraine: (3) Hypothyroidism: (4) Morbid obesity: (5) Hyperlipidemia: (6) Chronic back pain: History of Present Illness Reason for Consultation: Medical management Requesting Physician: Dr. Amaya Attending Physician: Albert Amaya, History of Present Illness This is a 45 yo F with PMHx of HLD, hypothyroidism, depression, anxiety, chronic back pain, migraine, morbid obesity with BMI of 41.6, spinal stenosis who presents for elective ACDF of C4-C7 by Dr. Amaya on 06/06/21. Allergies Allergy/AdvReac Type Severity Reaction Status Date / Time ampicillin Allergy Intermediate Hives Verified 06/06/21 06:25 Iodinated Contrast Media Allergy Mild Itching Verified 06/06/21 06:25 [Iodinated Contrast- Oral and IV Dye] latex Allergy Mild Skin Verified 06/06/21 06:25 redness Home Medications Medication Instructions Recorded Confirmed Type ferrous sulfate 325 mg (65 mg 325 mg PO QAM 07/12/18 06/06/21 History iron) tablet (iron) acetaminophen 500 mg tablet 1,000 mg PO Q6H PRN 08/07/18 06/06/21 History (Tylenol Extra Strength) cyclobenzaprine 10 mg tablet 10 mg PO TID PRN 06/02/19 06/06/21 History ergocalciferol (vitamin D2) 1,250 50,000 unit PO WK 06/02/19 06/06/21 History mcg (50,000 unit) capsule (Vitamin D2) zolpidem 12.5 mg tablet,extended 10 mg PO HS 06/02/19 06/06/21 History release,multiphase (Ambien CR) rizatriptan 10 mg tablet (Maxalt) 10 mg PO UD PRN 07/28/19 06/06/21 History alprazolam 0.5 mg tablet (Xanax) 0.5 mg PO TID 05/18/21 06/06/21 History atorvastatin 20 mg tablet 20 mg PO QAM 05/18/21 06/06/21 History celecoxib 200 mg capsule (Celebrex) 200 mg PO BID 05/18/21 06/06/21 History citalopram 20 mg tablet (Celexa) 20 mg PO QAM 05/18/21 06/06/21 History docusate sodium 100 mg tablet 100 mg PO QAM 05/18/21 06/06/21 History (Stool Softener) levothyroxine 175 mcg tablet 175 mcg PO QAM 05/18/21 06/06/21 History pregabalin 75 mg capsule (Lyrica) 75 mg PO TID 05/18/21 06/06/21 History Vitamin B-12 sliding scale dose SUBLINGUAL DAILY 06/06/21 History Patient History Medical History (Updated 06/06/21 @ 13:04 by Angela Lee PA-C) Anemia Anxiety Arthritis Chronic back pain B/L LE radiculopathy/neuropathy Depression History of seizure Single episode (2014) r/t "traumatic issues"/no issues since Follows with Dr. Inés Amaro ([place]) and Dr. Carmona ([place]) Hx of Lyme disease 2014 s/p treatment Hyperlipidemia Hypothyroidism Insomnia Migraine Morbid obesity Osteoarthritis Spinal stenosis Temporomandibular joint disorder R/L, no locking x years Surgical History History of arthroscopy Right History of back surgery Including lumbar fusion (total x3 surgeries) L3 screws + interbody cage revision (07/31/19): Grade view 1, MAC#3 at [facility] History of bowel resection 2/2 obstruction after gastric bypass History of carpal tunnel release of both wrists History of section History of cholecystectomy History of colonoscopy History of dilatation and curettage History of esophagogastroduodenoscopy (EGD) History of gastric bypass History of herniorrhaphy x5 (ventral/inguinal) History of hysterectomy + USO History of tonsillectomy and adenoidectomy History of tooth extraction Family History Brother Family history of diabetes mellitus Sister Family history of diabetes mellitus Father Family history of diabetes mellitus Mother Family history of diabetes mellitus Social History (Updated 05/18/21 @ 14:13 by Perla Haji RN) Smoking Status: Never smoker Smoking End Date: Quit 11/19/2018 (hx 15-20 cigs/day); Second Hand Exposure: No; Do You Dip or Chew Tobacco: No; Hx Alcohol Use: No Hx Substance Use: No Preferred Language: [place] Communication Ability: Effective Business Objects Required: No Beliefs That Will Affect Care: None marital status: Current Living Situation: Spouse current occupational status: unemployed Other Information That Helps Us Care for You: No Feels Safe at Home: Yes Safety Concerns: Feels Safe At This Time Assistive Devices: None Assistive Devices Comment: WEARS KNEE BRACES Results & Data Results & Data ([facility]) Vital Signs (Past 12 Hours) Vital Signs Temp Pulse Pulse Pulse Resp BP Pulse Ox 06/06/21 12:40 104 H 17 97 06/06/21 12:05 110 H 12 129/98 93 06/06/21 11:50 36.3 C L 107 H 12 137/106 H 93 06/06/21 11:40 99 H 12 143/106 H 94 06/06/21 11:30 103 H 13 138/108 H 96 06/06/21 11:27 96 H 14 95 06/06/21 11:20 98 H 13 150/110 H 93 06/06/21 11:10 94 H 17 128/104 H 93 06/06/21 11:00 105 H 17 161/96 H 96 06/06/21 10:50 99 H 14 165/98 H 93 06/06/21 10:40 104 H 12 169/100 H 95 06/06/21 10:30 36.5 C 108 H 14 175/98 H 94 06/06/21 06:38 37.0 C 67 16 121/77 98
[2021-06-06] MEDS: LACTATED RINGER'S 1,000 ML IV SCH ×2 (13:36→20:35)
--- NOTE | 2021-06-06 13:55 | Fluoroscopy Report ---
FL cervical 2-3V CLINICAL HISTORY: ACDF C4-C7/ POSSIBLE C3-C4 CORPECTOMY COMPARISON STUDY: None FLUOROSCOPY TIME: 12 seconds. NUMBER OF FLUOROSCOPIC IMAGES: 3 FINDINGS: Few intraoperative fluoroscopy images presented for review shows fixating screws and metallic plates are seen at anterior aspect of the upper-lower cervical spine. Multiple wires and in the tracheal tube are seen. IMPRESSION: As above. ACT 112: Negative or not required by law. The above report was generated using voice recognition software. It may contain grammatical, syntax o r spelling errors. Electronically signed by: Jocelin Cade DO 06/06/2021 1:54 PM
[2021-06-06] MEDS: oxyCODONE HCL IR 5 MG TAB (IMMEDIATE RELEASE) PO PRN ×2 (15:09→21:54)
[2021-06-06] MEDS: dexAMETHasone 6 MG in SYRINGE 0 ML IV SCH ×2 (15:11→21:56)
[2021-06-06] MEDS: PREGABALIN 75 MG CAP PO SCH ×2 (15:12→21:54)
[2021-06-06] MEDS: CLINDAMYCIN 600 MG in DEXTROSE 5% 50 ML IV SCH ×2 (15:12→22:01)
[2021-06-06] MEDS: ALPRAZolam 0.5 MG TABLET PO SCH ×2 (15:19→21:54)
[2021-06-06] MEDS: HYDROmorphone INJ 1 MG/ML SYRINGE IV PRN (17:38)
[2021-06-06] MEDS ORDERED: DOCUSATE SODIUM/SENNA 50/8.6MG TAB PO SCH (21:00)
[2021-06-06] MEDS ORDERED: ZOLPIDEM TARTRATE 10 MG TAB PO SCH (21:00)
[2021-06-07] MEDS: oxyCODONE HCL IR 5 MG TAB (IMMEDIATE RELEASE) PO PRN ×2 (01:59→07:45)
[2021-06-07] MEDS: LACTATED RINGER'S 1,000 ML IV SCH (02:00)
[2021-06-07] MEDS: dexAMETHasone 6 MG in SYRINGE 0 ML IV SCH (05:47)
[2021-06-07] MEDS ORDERED: POLYETHYLENE (MIRALAX) 17 GM PACK PO SCH (06:00)
[2021-06-07] MEDS ORDERED: LEVOTHYROXINE SODIUM 175 MCG TABLET PO SCH (06:30)
[2021-06-07 08:29] VITALS: TEMP 98.8
[2021-06-07] MEDS: ALPRAZolam 0.5 MG TABLET PO SCH (08:41)
[2021-06-07] MEDS: PREGABALIN 75 MG CAP PO SCH (08:41)
[2021-06-07] MEDS: HYDROmorphone INJ 1 MG/ML SYRINGE IV PRN (08:46)
[2021-06-07] MEDS ORDERED: CITALOPRAM 20 MG TAB PO SCH (09:00)
[2021-06-07] MEDS ORDERED: ATORVASTATIN 20 MG TAB PO SCH (09:00)
[2021-06-07] MEDS ORDERED: DOCUSATE SODIUM 100 MG CAP PO SCH (09:00)
[2021-06-07] MEDS ORDERED: FERROUS SULFATE 325 MG TAB PO SCH (09:00)
--- NOTE | 2021-06-07 10:13 | Discharge Summary ---
Date of Service June 07, 2021 Admission HPI Per Admitting Provider This is a 45-year-old female presents with chronic persistent neck and arm pain after failing course of nonoperative care she is here for surgical invention. Principal Diagnosis Cervical spinal stenosis with myeloradiculopathy Discharge Data Allergies Allergy/AdvReac Type Severity Reaction Status Date / Time ampicillin Allergy Intermediate Hives Verified 06/06/21 06:25 Iodinated Contrast Media Allergy Mild Itching Verified 06/06/21 06:25 [Iodinated Contrast- Oral and IV Dye] latex Allergy Mild Skin Verified 06/06/21 06:25 redness Consultations 06/06/21 12:41 Consult Hospitalist Routine Procedures Performed Operation Date: 06/06/21 07:45 Actual Procedures p C3-C7 Anterior Cervical Discectomy and Fusion, C5 Corpectomy, Spinal Cord Monitoring, Application of Bone Graft - Albert Amaya DO Ordered Studies 06/06/21 07:45 [place] cervical 2-3V Routine Hospital Course (1) Myelopathy concurrent with and due to spinal stenosis of cervical region: Patient underwent multilevel anterior cervical discectomy and fusion cholecystectomy orthopedic postoperatively. Post op day #1 she is swallowing well no hoarseness. Marked improvement of her upper extremity symptoms. She has been ambulating the halls without difficulty. Excellent strength testing. Subsequently discharged home. Discharge orders instructions from the chart for further review. Total Time Total Time Spent Total Time Spent (In Minutes): 20 minutes Discharge Plan Discharge Items Patient Disposition: Home - Self-Care Reason For Visit: Spinal Stenosis, Cervical Region Discharge Diagnosis: Cervical spinal stenosis with myeloradiculopathy Activity: As commented below Non-emergency contact: Primary Care Provider Call non-emergency contact if: you have any medication questions Follow-up/Referrals: PCP,NO [Primary Care Provider] - Diet: Regular Addtl Attending Provider Instructions: ACTIVITY RECOMMENDATIONS: SELF CARE INSTRUCTIONS AFTER CERVICAL FUSIONS 1. No smoking. Smoking drastically decreases the chance of a solid fusion. 2. No bending, lifting more than 5 pounds, or twisting (roll like a log when turning in bed). 3. You may shower 3 days after surgery. Thoroughly dry wound. Do not soak in the tub. 4. Cervical collar: Must be worn at all times including sleeping. You may remove the brace only to bath, eat and if you are sitting in a recliner. 5. Please walk as much as you can for exercise. Gradually increase the distance that you walk as your endurance increases. SPECIAL CARE INSTRUCTIONS: VERY IMPORTANT TO READ AND REVIEW A. Do not take any anti-inflammatory medications (i.e. Indocin, Advil, Aspirin, Naprosyn, Aleve, Motrin, etc.) as these may inhibit the chance of a solid fusion. Tylenol is okay to take. B. Your surgical incision has been closed with a cosmetic suture under the skin that will dissolve in about 6 weeks. In 14 days, you can use a pair of clean scissors and cut the suture that is left outside of the skin at the ends of your incision. C. Complications are uncommon, but please contact us if you have any signs or symptoms of: 1. wound infection (fever higher than 102.5 degrees F, redness, separation of wound, drainage, or increasing pain from the incision) 2. blood clots in legs (pain, swelling, redness and warmth in legs) 3. urinary tract infection (fever higher than 102.5 degrees, burning upon urination or increased frequency of urination) 4. nerve problems (inability to walk on your toes or heels, numbness, loss of bowel or bladder control) 5. any other symptoms that concern you. D. Please call the office at if you have any concerns or questions about your operation or recovery. MANAGING PAIN AFTER SPINAL SURGERY 1. Narcotic medication is intended for short-term use and will be provided for surgical pain. Surgical pain usually lasts for a period of 4-6 weeks. Narcotic medication includes Percocet, Vicodin, Darvocet, Tylenol #3 or Lortab. 2. Longer-term pain is more appropriately treated with non-narcotic medication such as Tylenol ES. 3. Muscle spasm is not appropriately treated with narcotics. Muscle relaxers such as Soma, Flexeril or Skelaxin can be used along with Tylenol ES. 4. Remember that we all live with some "aches and pains". This is not unusual or uncommon after an injury or as we get older. 5. We will provide appropriate medication within the normal guidelines of their prescribed use. We will also be very cautious and aware of potential abuse and extended duration of patients' medication needs. 6. Please allow 2-3 days to process refills. Prescriptions will not be mailed but must be picked up at the office. FOLLOW UP VISIT: Keep your scheduled follow-up appointment. Any questions, please call the office at . Pending Studies at Discharge: No Stand-Alone Forms: My [facility], Smoking Cessation Medications and DC Order Prescriptions: New tramadol 50 mg tablet 50 mg PO Q6H PRN (Reason: pain, moderate) Qty: 20 RF: 0 oxycodone 5 mg tablet 5 mg PO Q6H PRN (Reason: pain, severe) Qty: 20 RF: 0 Continued cyclobenzaprine 10 mg Tablet 10 mg PO TID PRN (Reason: BACK SPASMS) RF: 0 zolpidem [Ambien CR] 12.5 mg Tablet,Ext Release Multiphase 10 mg PO HS RF: 0 ergocalciferol (vitamin D2) [Vitamin D2] 50,000 unit Capsule 50,000 unit PO WK RF: 0 ferrous sulfate [iron] 325 mg (65 mg iron) Tablet 325 mg PO QAM RF: 0 acetaminophen [Tylenol Extra Strength] 500 mg Tablet 1,000 mg PO Q6H PRN (Reason: Pain) RF: 0 rizatriptan [Maxalt] 10 mg Tablet 10 mg PO UD PRN (Reason: MIGRAINES) RF: 0 levothyroxine 175 mcg Tablet 175 mcg PO QAM RF: 0 alprazolam [Xanax] 0.5 mg Tablet 0.5 mg PO TID RF: 0 pregabalin [Lyrica] 75 mg Capsule 75 mg PO TID RF: 0 atorvastatin 20 mg Tablet 20 mg PO QAM RF: 0 celecoxib [Celebrex] 200 mg Capsule 200 mg PO BID RF: 0 citalopram [Celexa] 20 mg Tablet 20 mg PO QAM RF: 0 docusate sodium [Stool Softener] 100 mg Tablet 100 mg PO QAM RF: 0 Vitamin B-12 sublingual DAILY RF: 0 Discharge Orders: Discharge Order (Routine); Ordered 06/07/21 Ordered By: Albert Amaya Admission Data Admit Date/Time: 06/06/21 12:27 Attending Provider: Albert Amaya Admit Provider: Albert Amaya Primary Care Provider: PCP,NO Other Providers: Chris Mcbride
[2021-06-07 11:16] VITALS: BP 119/74
[2021-06-07 11:19] VITALS: PULSE 63; O2SAT 93
== END 2021-06-07 11:45 | disposition home or self-care (01) ==
LOC: ASU 05:57 → INTOOBSV 10:22 → 3E 12:27